=== PATIENT | female | born 1995 | race Caucasian/White ===

== ENCOUNTER 2025-01-16 16:55 | Inpatient (IN) | payer OTHER, SELFPAY ==
--- NOTE | ~2025-01-16 | US_ITS ---
CLINICAL HISTORY: further evaluation of large breast abscess Ultrasound right breast limited Comparison: None available Findings: At the area of concern in the lower-inner quadrant of the right breast there is a subcutaneous hypoechoic irregular nonvascular collection. Internal components are heterogeneous and hypoechoic without internal vascularity. Surrounding soft tissue is hypervascular. Collection measures 6.0 x 2.5 x 5.7 cm. IMPRESSION: Complex collection in the lower inner quadrant of the right breast measuring 6.0 x 2.5 x 5.7 cm with imaging characteristics suggestive of abscess. Recommend follow-up imaging after treatment at breast Imaging center to ensure resolution, as inflammatory breast cancer can have an appearance overlapping with breast abscess. This document has been electronically signed by: Evelio Olson MD on 01/16/2025 19:57:58
[2025-01-16 17:05] VITALS: BP 162/96; PULSE 110; RESP 18; TEMP 36.9; O2SAT 97; BMI 37.1
--- NOTE | 2025-01-16 17:05 | ED.GENADULT ---
HPI - General Adult General Chief complaint: Skin/Abscess/Foreign Body Stated complaint: pain, redness, swelling under right breast Time Seen by Provider: 01/16/25 20:48 Source: patient Limitations: no limitations History of Present Illness ED Provider: Chelo Jacobson PA-C HPI narrative: 29-year-old female with a history of morbid obesity, PCOS, diabetes who presents with right breast infection x1 week. Patient states she is prone to cystic acne. She developed a lesion beneath the right breast. It has increased in size, become large, red, warm and extremely painful. Subjective fevers at home, no active drainage from the site. The patient is not currently breast-feeding, she has not been breast-feeding recently. Patient states that she has not manage her diabetes with medication for 5 years. She states a one point she developed DKA, she was on insulin for 6 months. Following this time frame, she was told that managing her diabetes with diet and exercise would be sufficient. Related Data Allergies Allergy/AdvReac Type Severity Reaction Status Date / Time No Known Allergies Allergy Verified 01/16/25 17:06 Review of Systems Review of Systems: Yes all other systems are reviewed and are negative Constitutional: Constitutional: Denies fatigue and Reports fever(s) Cardiovascular: Cardiovascular: Reports chest pain and Denies dyspnea Respiratory: Respiratory: Denies dyspnea Gastrointestinal: Gastrointestinal: Denies abdominal pain, Denies nausea and Denies vomiting Integumentary/Breasts: Skin/Breast: Reports erythema, Reports skin swelling and Reports wounds Endocrine: Endocrine: Denies fatigue PMFSH Past Medical History Attestation statement: The following information was validated with the patient. Social History Social History Advance Directives: No Advance Directives Information Provided: Yes Do you have a plan to hurt others: No Plan Physical Exam ED Vital Signs: Vital Signs - 24 hr 01/16/25 17:05 01/16/25 20:54 01/16/25 21:29 Temperature 98.5 F 98.3 F 98.3 F Pulse Rate 110 H 101 H 101 H Respiratory Rate 18 20 20 Blood Pressure 162/96 H 146/59 H 146/59 H Pulse Oximetry 97 98 98 Oxygen Delivery Method Room Air Room Air Room Air BMI result Body Mass Index 37.1 Const Other: Alert Orientation/consciousness: patient oriented x3 Chest Other: The right breast is erythematous inferiorly and medially, large tender fluctuant swelling noted within this region, no active purulence from the site Resp Effort & Inspection: normal respiratory effort Cardio Other: Nonlabored respiration Skin Other: Warm dry no rash Neuro General: patient oriented x3, gait normal, no focal motor deficits and CN's II-XI intact bilaterally Psych Other: Cooperative Course Course Course Narrative: Rapid medical examination performed in triage by Kenya Frank PA-C. Patient is a 29 year old assigned female at presenting to the emergency department with a right breast abscess. Patient states that over the last week she has had a growing right breast abscess. Patient states that she is a diabetic. Detailed physical exam and review of systems are deferred to the link trainer operator. Labs and imaging ordered. Patient placed back in the waiting room pending room availability and results. Consultations Consultation #1: per Dr. Gan........he feels it appears to be superficial, that I could drain at bedside, just make a small incision Time: 21:18 Medications Administered Discontinued Medications Generic Name Dose Route Start Last Admin Trade Name Tia PRN Reason Stop Dose Admin Sodium Chloride 500 mls @ 500 mls/hr 01/16/25 21:22 01/16/25 21:59 Ns IV 01/16/25 22:21 500 mls/hr .Q1H ONE Administration Vancomycin HCl 1,500 mg/ 500 mls @ 333.333 mls/hr 01/16/25 21:22 01/16/25 22:20 Sodium Chloride IV 01/16/25 22:51 333.33 mls/hr ONCE ONE Administration Lidocaine/Epinephrine 10 ml 01/16/25 21:45 01/16/25 21:59 Lidocaine Hcl 1%/Epi 1:100,000 10 Ml Vial INFILTRATI 01/16/25 21:46 10 ml ONCE ONE Administration Morphine Sulfate 4 mg 01/16/25 21:22 01/16/25 21:58 Morphine Sulfate 4 Mg/Ml Cartridge IVPUSH 01/16/25 21:23 4 mg ONCE ONE Administration Protocol Procedures Abscess I/D Site: other (breast) Side (if applicable): right Sedation/analgesia: none Local Anesthetic: lidocaine 1% and with epi Amount of anesthesia used (mL): 5 Technique: incised with blade Amount of fluid expressed (mL): 50 Sent for culture/gram staining?: Yes Irrigation: No Packing used?: iodoform Medical Decision Making Medical Decision Making [facility] Narrative: [id number] female with a history of morbid obesity, PCOS, diabetes who presents with right breast infection x1 week. Patient states she is prone to cystic acne. She developed a lesion beneath the right breast. It has increased in size, become large, red, warm and extremely painful. Subjective fevers at home, no active drainage from the site. The patient is not currently breast-feeding, she has not been breast-feeding recently. Patient states that she has not manage her diabetes with medication for 5 years. She states a one point she developed DKA, she was on insulin for 6 months. Following this time frame, she was told that managing her diabetes with diet and exercise would be sufficient. Problem: PCOS, diabetes, obesity History: Per patient I have considered the following differential diagnoses: Cellulitis, purulent cellulitis, furuncle, carbuncle, abscess, mastitis, cancer Plan: The patient has a very large abscess of the right breast, ultrasound and labs already collected. Adding a blood cultures, lactic starting vanco, we will reach out to surgery for consult I have independently reviewed the following tests: Labs: Leukocytosis with left shift, not anemic, CRP 10.03, ESR 38 Ultrasound right breast:Findings: At the area of concern in the lower-inner quadrant of the right breast there is a subcutaneous hypoechoic irregular nonvascular collection. Internal components are heterogeneous and hypoechoic without internal vascularity. Surrounding soft tissue is hypervascular. Collection measures 6.0 x 2.5 x 5.7 cm. IMPRESSION: Complex collection in the lower inner quadrant of the right breast measuring 6.0 x 2.5 x 5.7 cm with imaging characteristics suggestive of abscess. Recommend follow-up imaging after treatment at breast Imaging center to ensure resolution, as inflammatory breast cancer can have an appearance overlapping with breast abscess. Differential Diagnosis Differential Diagnoses: The differential diagnosis associated with the presentation includes See medical decision making Admission/Observation Consideration of admission/observation: Escalation of care including admission/observation considered Surgical consult and medical admit Consult Healthcare Provider Management of the patient was discussed with: Hospitalist and Street Car Inspector Surgical consult Lab Data [facility] Lab Attestation statement: I reviewed the patient's lab results. 01/16/25 17:16 01/16/25 17:16 Labs: Lab Results 01/16/25 01/16/25 Range/Units 17:16 21:14 WBC 12.7 H (4.8-10.8) X10*3/uL RBC 4.89 (4.20-5.50) X10*6/uL Hgb 12.1 (12.0-16.0) g/dl Hct 36.7 L (37.0-47.0) % MCV 75.1 L (80.0-98.0) fL MCH 24.7 L (27.0-33.0) pg MCHC 33.0 (31.0-35.0) g/dl RDW 13.8 (11.0-16.0) % Plt Count 326 (160-400) X10*3/uL MPV 9.1 L (9.4-12.3) fL Immature Gran % (Auto) 0.7 H (0.0-0.4) % Neut % (Auto) 78.6 H (45-73) % Lymph % (Auto) 14.9 L (20-40) % [place] % (Auto) 5.3 (2-11) % Eos % (Auto) 0.3 (0-4) % Baso % (Auto) 0.2 (0-2) % Lymph # (Auto) 1.9 (1.2-4.9) X10*3/uL [place] # (Auto) 0.7 (0.1-1.2) X10*3/uL Eos # (Auto) 0.0 (0.0-0.4) X10*3/uL Baso # (Auto) 0.0 (0.0-0.2) X10*3/uL Abs Immat Gran (auto) 0.09 H (0.00-0.03) X10*3/uL Absolute Neuts (auto) 10.0 H (2.0-8.3) x10*3/uL Absolute Nucleated RBC 0.000 (0.0-0.012) X10*3/uL Nucleated RBC % (auto) 0.0 (0.0-0.2) /100WBC ESR 38 H (0-20) MM/HR Sodium 138 (135-145) mmol/L Potassium 3.8 (3.3-5.1) mmol/L Chloride 105 (96-108) mmol/L Carbon Dioxide 19 L (22-29) mmol/L Anion Gap 18 (12-20) BUN 8 L (9-16) mg/dL Creatinine 0.50 (0.5-1.4) mg/dL Estim Creat Clear Calc 173.7 Estimated GFR > 60 Random Glucose 322 H (60-115) mg/dL Lactic Acid 0.8 (0.5-2.0) mmol/L Calcium 9.8 (8.4-10.2) mg/dL Total Bilirubin 0.4 (0.0-1.0) mg/dL AST 17 (5-31) U/L ALT 13 (0-31) U/L Alkaline Phosphatase 92 (39-117) U/L C-Reactive Protein 10.03 H (< or = 0.50) mg/dL Total Protein 7.7 (6.5-8.0) g/dL Albumin 4.3 (3.5-5.0) g/dL Beta HCG, Quant < 2 mIU/mL Radiology Impression Discussion of test interpretation with radiology: I have reviewed the radiologist's reading. Discharge Plan Discharge Clinical Impression: Abscess of right breast Patient Disposition: Admitted As Inpatient Interventions: ED Discharge Assessment Last Done: 01/16/25 21:29 Admission Worksheet (ED) Last Done: 01/16/25 22:49 Print Language: Turkmen
[2025-01-16 17:26] LABS: MANUAL DIFF FLAG NO
[2025-01-16 17:28] LABS: Hematocrit 36.7 % (37.0-47.0); Hemoglobin 12.1 g/dl (12.0-16.0); Imm Gran Abs Auto 0.09 X10*3/uL (0.00-0.03); Imm Gran Pct Auto 0.7 % (0.0-0.4); Lymphocytes Absolute Auto 1.9 X10*3/uL (1.2-4.9); Mean Corpuscular HGB Conc 33.0 g/dl (31.0-35.0); Mean Corpuscular Hemoglobin 24.7 pg (27.0-33.0); Mean Corpuscular Volume 75.1 fL (80.0-98.0); NRBC Abs Auto 0.000 X10*3/uL (0.0-0.012); NRBC Pct Auto 0.0 /100WBC (0.0-0.2); Platelet Count 326 X10*3/uL (160-400); Red Blood Count 4.89 X10*6/uL (4.20-5.50); White Blood Count 12.7 X10*3/uL (4.8-10.8)
[2025-01-16 17:44] LABS: Alanine Aminotransferase 13 U/L (0-31); Albumin Level 4.3 g/dL (3.5-5.0); Alkaline Phosphatase 92 U/L (39-117); Anion Gap 18 (12-20); Aspartate Amino Transferase 17 U/L (5-31); Blood Urea Nitrogen 8 mg/dL (9-16); Calcium 9.8 mg/dL (8.4-10.2); Carbon Dioxide 19 mmol/L (22-29); Chloride 105 mmol/L (96-108); Creatinine Clr Calc Pharmacy 173.7; Estimated Glomerular Filt Rate > 60; Potassium 3.8 mmol/L (3.3-5.1); Sodium 138 mmol/L (135-145); Total Protein 7.7 g/dL (6.5-8.0)
[2025-01-16 20:54] VITALS: BP 146/59; PULSE 101; RESP 20; TEMP 36.8; O2SAT 98
[2025-01-16 21:29] VITALS: BP 146/59; PULSE 101; RESP 20; TEMP 36.8; O2SAT 98
[2025-01-16] MEDS: Lidocaine HCl 1%/Epi 1:100,000 10 ML VIAL INFILTRATI (21:59)
--- NOTE | 2025-01-16 23:04 | P.HPHOSP_ITS ---
History of Present Illness Date of Service: 01/16/25 Chief Complaint: breast lesion 29-year-old female with a past medical history of diabetes, elevated BMI; presented to the hospital today with a chief complaint of right breast infection. Patient mentioned that about a week ago she developed a lesion underneath her right breast followed by he developed into a wound with surrounding erythema. Has subjective fevers. Subsequently came to ER for further evaluation. Patient denies any chest pain or palpitations. Denies nausea or vomiting. Denies any GI or symptoms. Mentioned she has history of diabetes and he has been noncompliant with her medications due to insurance concerns. Review of all other systems is negative except mentioned above ER course: Per ER team, patient noted to have lesion under the right breast which is warm tender and erythematous; status post I and D at bedside. Cultures were sent from the fluid. Patient was started on broad-spectrum antibiotics. ER team also discussed with Dr. Gan from General surgery. Admission to the medicine service for IV antibiotic and will evaluate the patient in the morning. Better ultrasound showed 6 X5.7 cm abscess in the right breast. PMFSH Social History Household Members: Spouse and Children Housing: House Do you presently have visiting nurse or other home services: No Patient Tobacco Use Status: Never used Tobacco Smoked in Last 30 Days: No e-Cigarette/Vaping Use: Former Use Patient Interested in Nicotine Replacement: No Second Hand Smoke Exposure: No Have you been hit, kicked, punched, or otherwise hurt by someone within the past year? If so, by whom?: No Do you feel safe in your current relationship?: Yes Is there a partner from a previous relationship who is making you feel unsafe now?: No Are you made to feel afraid or neglected: No Advance Directives: No Advance Directives Information Provided: Yes Advance Directives on File: No Do you have a plan to hurt others: No Plan Recently lost weight without trying: No Eating poorly because of decreased appetite: No Nutrition Risks: No Nutritional Risk Patient : No : No Poor oral hygiene: No Meds Allergies Allergy/AdvReac Type Severity Reaction Status Date / Time No Known Allergies Allergy Verified 01/16/25 17:06 Physical Exam 2 Vital Signs and Narrative: Vital Signs: Last Vital Signs Temp 98.3 F 01/16/25 21:29 Pulse 101 H 01/16/25 21:29 Resp 20 01/16/25 21:29 BP 146/59 H 01/16/25 21:29 Pulse Ox 98 01/16/25 21:29 O2 Del Method Room Air 01/16/25 21:29 BMI result Body Mass Index 37.1 Gen: Appears be in no acute distress HEENT: NCAT, Moist mucosa. Pulmonary: Vesicular breath sounds, fair air entry CVS: Normal S1-S2 Abdomen: BS+, Soft, Nontender Extremities: Warm well perfused Neuro: Alert and awake. Skin: Results Labs 01/17/25 03:37 01/17/25 03:37 Labs: Laboratory Results - last 24 hr 01/16/25 01/16/25 17:16 21:14 MCV 75.1 L MCH 24.7 L MCHC 33.0 RDW 13.8 Plt Count 326 MPV 9.1 L Immature Gran % (Auto) 0.7 H Neut % (Auto) 78.6 H Lymph % (Auto) 14.9 L [place] % (Auto) 5.3 Eos % (Auto) 0.3 Baso % (Auto) 0.2 Lymph # (Auto) 1.9 [place] # (Auto) 0.7 Eos # (Auto) 0.0 Baso # (Auto) 0.0 Abs Immat Gran (auto) 0.09 H Absolute Neuts (auto) 10.0 H Absolute Nucleated RBC 0.000 Nucleated RBC % (auto) 0.0 ESR 38 H Anion Gap 18 Estim Creat Clear Calc 173.7 Estimated GFR > 60 Random Glucose 322 H Lactic Acid 0.8 Calcium 9.8 Total Bilirubin 0.4 AST 17 ALT 13 Alkaline Phosphatase 92 C-Reactive Protein 10.03 H Total Protein 7.7 Albumin 4.3 Beta HCG, Quant < 2 Assessment and Plan (1) Abscess of right breast: Status: Acute Plan 29-year-old female with a past medical history of diabetes, elevated BMI; presented to the hospital today with a chief complaint of right breast infection. Right breast cellulitis/abscess: Continue vancomycin, Zosyn General surgery consult Follow-up cultures Pain control Radiology recommended follow-up imaging after treatment at breast Imaging center to ensure resolution, as inflammatory breast cancer can have an appearance overlapping with breast abscess. Diabetes: Patient noncompliant with medications. Currently mildly hyperglycemic. Not in DKA or HHS. Will give the patient Lantus plus sliding scale. Follow up hemoglobin A1c. DVT prophylaxis: Lovenox Code status: Full code Quality Stroke Does the patient have a stroke diagnosis?: No VTE Prior VTE?: No VTE Risk Level:: Medical - moderate - high VTE Device Contraindication: Treatment Not Indicated VTE Drug Contraindication: N/A - Med Ordered
[2025-01-16 23:08] VITALS: BP 142/67; PULSE 104; RESP 20; TEMP 36.9; O2SAT 96
[2025-01-17] MEDS: Lactated Ringers 1,000 ML 100 ML IVCONT ×3 (00:02→21:19)
[2025-01-17] MEDS: 0.9 % Sodium Chloride Flush 3 ML SYRINGE IVFLUSH ×2 (00:02→19:59)
[2025-01-17 04:11] VITALS: BP 132/69; PULSE 94; RESP 20; TEMP 37; O2SAT 96
[2025-01-17 04:46] LABS: MANUAL DIFF FLAG NO
[2025-01-17 04:55] LABS: Hematocrit 32.5 % (37.0-47.0); Hemoglobin 10.6 g/dl (12.0-16.0); Imm Gran Abs Auto 0.06 X10*3/uL (0.00-0.03); Imm Gran Pct Auto 0.5 % (0.0-0.4); Lymphocytes Absolute Auto 3.1 X10*3/uL (1.2-4.9); Mean Corpuscular HGB Conc 32.6 g/dl (31.0-35.0); Mean Corpuscular Hemoglobin 25.0 pg (27.0-33.0); Mean Corpuscular Volume 76.7 fL (80.0-98.0); NRBC Abs Auto 0.000 X10*3/uL (0.0-0.012); NRBC Pct Auto 0.0 /100WBC (0.0-0.2); Platelet Count 299 X10*3/uL (160-400); Red Blood Count 4.24 X10*6/uL (4.20-5.50); White Blood Count 11.6 X10*3/uL (4.8-10.8)
[2025-01-17 05:06] LABS: Anion Gap 15 (12-20); Blood Urea Nitrogen 11 mg/dL (9-16); Calcium 8.7 mg/dL (8.4-10.2); Carbon Dioxide 20 mmol/L (22-29); Chloride 107 mmol/L (96-108); Creatinine Clr Calc Pharmacy 181.0; Estimated Glomerular Filt Rate > 60; Potassium 3.9 mmol/L (3.3-5.1); Sodium 138 mmol/L (135-145)
[2025-01-17 05:51] VITALS: BMI 36.3
[2025-01-17 06:06] VITALS: BP 166/86; PULSE 100; RESP 20; TEMP 36.8; O2SAT 98
--- NOTE | 2025-01-17 06:49 | PHA.PROG ---
Admission Date/Time: January 16, 2025 23:01 Indication:SSSI Weight in k.1 kg Serum Creatinine - Last 168 Hours 01/16/25 01/17/25 17:16 03:37 Creatinine 0.50 0.48 L Estimated CrCl and GFR - Last 168 Hours 01/16/25 01/17/25 17:16 03:37 Estim Creat Clear Calc 173.7 181.0 Estimated GFR > 60 > 60 Vancomycin Loading Dose: 1,500mg Current Vancomycin Dosing Regimen: 1,250 mg q12h Vancomycin Monitoring using AUC goal of 400 - 600 range with trough as surrogate marker: 461, 13.7 Date and Time for next Vancomycin Level to be drawn: 01/18 @ 1000 Pharmacist Comments on Vancomycin Plan: Vancomycin dosing will take advantage of [employer] as a clinical decision support tool that uses Bayesian modeling to calculate individual patient's pharmacokinetic parameters and forecast the patient's drug concentration time course with the target goal AUC 24 range of 400 - 600 mg/L/hr.
[2025-01-17 07:52] LABS: Glucose, Whole Blood 253 mg/dL (60-115)
[2025-01-17 08:00] VITALS: BP 136/66; PULSE 98; RESP 18; TEMP 37.7; O2SAT 98
--- NOTE | 2025-01-17 08:02 | PHA.MEDREC ---
Addendum entered by Jaclyn Payton RPh 01/17/25 08:22: MED REC REVIEWED BY [facility] Original Note: Pharmacy Consult ? Medication Reconciliation Pharmacy has completed the medication reconciliation. Spoke with pt and she confirmed her medications.
--- NOTE | 2025-01-17 08:38 | P.CONGS_ITS ---
History of Present Illness Consult details Consult date: 01/17/25 <Paresh Huber PA-C - Last Filed: 01/17/25 08:57> Reason for consult: other (breast abscess) <Paresh Huber PA-C - Last Filed: 01/17/25 08:57> Narrative: 29 year old female with obesity, PCOS, diabetes seen in consult for a right breast abscess s/p I&D in the ED. She states this began last week as an area of redness and discomfort that she initially thought was a heat rash or a boil as she has had that in the past. However it continued to get more painful, red and swollen until about 2 days ago when the pain became unbearable. She denies fevers or chills, denies spontaneous drainage from the area She went to urgent care and was informed to come to the ED becasue she had an abscess. Labs in the ED showing leukocytosis 12.7. An I&d was performed in the ED, cultures were obtained. the wound was packed with 1/4 packing and dressed. Patient was started on empiric vanco and zosyn. This morning she does feel soem relief. Feels less pressure and pain wheen at rest, it is still painful with manipulation of the breast. Currently denying fever or chills. She is hungry and wants to eat <Paresh Huber PA-C - Last Filed: 01/17/25 08:57> PMF Social History Social History: Social History Household Members: Spouse and Children Housing: House Do you presently have visiting nurse or other home services: No Patient Tobacco Use Status: Never used Tobacco Smoked in Last 30 Days: No e-Cigarette/Vaping Use: Former Use Patient Interested in Nicotine Replacement: No Second Hand Smoke Exposure: No Have you been hit, kicked, punched, or otherwise hurt by someone within the past year? If so, by whom?: No Do you feel safe in your current relationship?: Yes Is there a partner from a previous relationship who is making you feel unsafe now?: No Are you made to feel afraid or neglected: No Advance Directives: No Advance Directives Information Provided: Yes Advance Directives on File: No Do you have a plan to hurt others: No Plan Recently lost weight without trying: No Eating poorly because of decreased appetite: No Nutrition Risks: No Nutritional Risk Patient : No : No Poor oral hygiene: No <Paresh Huber PA-C - Last Filed: 01/17/25 08:57> Meds Allergies/Adverse reactions: Allergies Allergy/AdvReac Type Severity Reaction Status Date / Time No Known Allergies Allergy Verified 01/16/25 17:06 <Paresh Huber PA-C - Last Filed: 01/17/25 08:57> Active Medications: Current Medications Acetaminophen (Acetaminophen 325 Mg Tablet) 650 mg PO Q6H PRN PRN Reason: Pain, Mild 1-3,fever,headache Calcium Carbonate (Calcium Carbonate 750 Mg Tab.Chew) 750 mg PO Q4H PRN PRN Reason: Heartburn Dextrose (Dextrose 50 % 25 Gm/50 Ml Syringe) 25 gm IVPUSH Q15M PRN; Protocol PRN Reason: per Hypoglycemia Standing Ord. Enoxaparin Sodium (Enoxaparin Sodium 40 Mg/0.4 Ml Syringe) 40 mg SUBCUT Q24H [facility] Last Admin: 01/17/25 00:09 Dose: 40 mg Glucose (Glucose Gel 15 Gm Gel..Gram.) 15 gm PO Q15M PRN; Protocol PRN Reason: per Hypoglycemia Standing Ord. Lactated Ringer's (Lr) 1,000 mls @ 100 mls/hr IVCONT .Q10H [facility] Last Admin: 01/17/25 00:02 Dose: 100 mls/hr Piperacillin Sod/Tazobactam (Sod 3.375 gm/ Sodium Chloride) 50 mls @ 100 mls/hr IV Q6H [facility] Last Infusion: 01/17/25 04:40 Dose: Infused Vancomycin HCl 1,250 mg/ (Sodium Chloride) 250 mls @ 166.667 mls/hr IV Q12H [facility] Insulin Glargine (Insulin Glargine,Hum.Rec.Anlog 100 Unit/Ml 10 Ml Vial) 10 unit SUBCUT BEDTIME [facility] Insulin Human Lispro (Insulin Lispro 100 Unit/Ml 3 Ml Vial) 0 unit SUBCUT QIDACHS [facility]; Protocol Last Admin: 01/17/25 07:58 Dose: 6 unit Magnesium Hydroxide (Milk Of Magnesia 30 Ml Oral.Susp) 30 ml PO DAILY PRN PRN Reason: Constipation Melatonin (Melatonin 3 Mg Tablet) 6 mg PO BEDTIME PRN PRN Reason: Insomnia Oxycodone HCl (Oxycodone Hcl Immed Release 5 Mg Tablet) 5 mg PO Q6H PRN PRN Reason: Pain, Moderate(Pain Scale 4-6) Pharmacy Consult (Consult Rx Vancomycin Dosing) 1 each MISCELLANE DAILY PRN PRN Reason: Consult order Sodium Chloride (0.9 % Sodium Chloride Flush 3 Ml Syringe) 3 ml IVFLUSH QSHIFT [facility] Last Admin: 01/17/25 07:56 Dose: Not Given <KOMAL Benson Last Filed: 01/17/25 08:57> Home medications: Home Medications ?Medication ?Instructions ?Recorded ?Confirmed ?Last Taken ?Type [id number] carb-vit K 1 tab PO DAILY 02/0201/17/25 01/16/25 History 18 mg iron-400 mcg-500 mg tablet naproxen sodium 220 mg tablet 440 - 660 mg PO BID PRN Pain 01/17/25 01/17/25 Unknown History (Aleve) <KOMAL Benson Last Filed: 01/17/25 08:57> Physical Exam 2 Vital Signs: Vital Signs: Last Vital Signs Temp 99.8 F 01/17/25 08:00 Pulse 98 01/17/25 08:00 Resp 18 01/17/25 08:00 BP 136/66 01/17/25 08:00 Pulse Ox 98 01/17/25 08:00 O2 Del Method Room Air 01/17/25 08:00 BMI result Body Mass Index 36.3 <KOMAL Benson Last Filed: 01/17/25 08:57> Const: General: comfortable and no acute distress <KOMAL Benson Last Filed: 01/17/25 08:57> Orientation/consciousness: patient oriented x3 <KOMAL Benson Last Filed: 01/17/25 08:57> Chest: Other: right breast: 1 cm incision, moderate serosanguenious drainage. moderate induration and erythema surrounding. there is about a 3 cm pocket. No further purulence. Tender. 3 cm deep <KOMAL Benson Last Filed: 01/17/25 08:57> Neuro: General: patient oriented x3 <KOMAL Benson Last Filed: 01/17/25 08:57> Results Labs Result diagrams: 01/17/25 03:37 01/17/25 03:37 <Paresh Huber PA-C - Last Filed: 01/17/25 08:57> Labs: Abnormal lab results 01/16/25 01/17/25 01/17/25 Range/Units 17:16 03:37 07:49 WBC 12.7 H 11.6 H (4.8-10.8) X10*3/uL Hgb 10.6 L (12.0-16.0) g/dl Hct 36.7 L 32.5 L (37.0-47.0) % MCV 75.1 L 76.7 L (80.0-98.0) fL MCH 24.7 L 25.0 L (27.0-33.0) pg MPV 9.1 L (9.4-12.3) fL Immature Gran % (Auto) 0.7 H 0.5 H (0.0-0.4) % Neut % (Auto) 78.6 H (45-73) % Lymph % (Auto) 14.9 L (20-40) % Abs Immat Gran (auto) 0.09 H 0.06 H (0.00-0.03) X10*3/uL Absolute Neuts (auto) 10.0 H (2.0-8.3) x10*3/uL ESR 38 H (0-20) MM/HR Carbon Dioxide 19 L 20 L (22-29) mmol/L BUN 8 L (9-16) mg/dL Creatinine 0.48 L (0.5-1.4) mg/dL POC Glucose 253 H (60-115) mg/dL Random Glucose 322 H 291 H (60-115) mg/dL C-Reactive Protein 10.03 H (< or = 0.50) mg/dL Short CBC 01/16/25 01/17/25 Range/Units 17:16 03:37 WBC 12.7 H 11.6 H (4.8-10.8) X10*3/uL Hgb 12.1 10.6 L (12.0-16.0) g/dl Hct 36.7 L 32.5 L (37.0-47.0) % Plt Count 326 299 (160-400) X10*3/uL BMP 01/16/25 01/17/25 17:16 03:37 Sodium 138 138 Potassium 3.8 3.9 Chloride 105 107 Carbon Dioxide 19 L 20 L BUN 8 L 11 Creatinine 0.50 0.48 L Calcium 9.8 8.7 D Liver Function 01/16/25 Range/Units 17:16 Total Bilirubin 0.4 (0.0-1.0) mg/dL AST 17 (5-31) U/L ALT 13 (0-31) U/L Alkaline Phosphatase 92 (39-117) U/L Albumin 4.3 (3.5-5.0) g/dL All other labs normal. <Paresh Huber PA-C - Last Filed: 01/17/25 08:57> Assessment and Plan (1) Abscess of right breast: Status: Acute <Paresh Huber PA-C - Last Filed: 01/17/25 08:57> I&D of a large right breast abscess done by the ED staff last night Abscess seemed to be adequately drained Right breast with a little bit of residual cellulitic changes but no fluctuance Dressings changed Packing changed Plan to check the wound tomorrow Continue antibiotics for now and follow up on cultures Seen and examined independently <Leon Gan MD - Last Filed: 01/17/25 09:24> 29 year old female with obesity, PCOS, diabetes seen in consult for a right breast abscess s/p I&D in the ED. Overall she is improving now that this is draining. Feels less pain and pressure. Denying fever or chills. On exam there is moderate induration and erythema surrounding the incision site. the dressings were saturated with serosanguenious fluid. Packing was removed and some excess blood drainage was expressed. I probed with a q tip to break up any loculations and further expressed more fluid. I did not appreciate any further purulence. I repacked the wound with 1/4 in packing and dressed the wound with gauze. No further indication for surgical intervention. can continue with daily dressing changes. She is okay to have diet as tolerated continue IV abx, cultures pending, consider narrowing when resulted daily dressing changes pain control glucose control patient should follow up with PCP regarding medications for diabetes <Paresh Huber PA-C - Last Filed: 01/17/25 08:57> Procedures Date of Service Date of Service: 01/17/25 <Paresh Huber PA-C - Last Filed: 01/17/25 08:57> 01/17/25 <Leon Gan MD - Last Filed: 01/17/25 09:24>
[2025-01-17 11:26] LABS: Glucose, Whole Blood 251 mg/dL (60-115)
--- NOTE | 2025-01-17 13:10 | MHC.CM.PN ---
pt lives with is independent has no setvices has own ride home dc plan home no services
--- NOTE | 2025-01-17 13:25 | HO.PM.IMPN ---
Subjective Subjective Date of Service: 01/17/25 Interval History: Pain better, intermittent No fevers No acute events overnight Seen by general surgery and dressing and packing changed Review of Systems Review of Systems: Yes all other systems are reviewed and are negative Physical Exam Exam: Exam: General: AOx3, no acute distress Resp: CTA bilaterally CVS: S1, S2, RRR GI: +BS, NT, no distention Skin: Warm, dry. Right breast with clean and dry dressing in place Neuro: Cranial nerves II-XII grossly intact bilaterally. Motor grossly intact bilaterally Extremities: No edema Psych: Appropriate affect Vital Signs: Vital Signs: Last Vital Signs Temp 99.8 F 01/17/25 08:00 Pulse 98 01/17/25 08:00 Resp 18 01/17/25 08:00 BP 136/66 01/17/25 08:00 Pulse Ox 98 01/17/25 08:00 O2 Del Method Room Air 01/17/25 08:00 BMI result Body Mass Index 36.3 Objective Data Active Medications Acetaminophen (Acetaminophen 325 Mg Tablet) 650 mg PO Q6H PRN PRN Reason: Pain, Mild 1-3,fever,headache Calcium Carbonate (Calcium Carbonate 750 Mg Tab.Chew) 750 mg PO Q4H PRN PRN Reason: Heartburn Dextrose (Dextrose 50 % 25 Gm/50 Ml Syringe) 25 gm IVPUSH Q15M PRN; Protocol PRN Reason: per Hypoglycemia Standing Ord. Enoxaparin Sodium (Enoxaparin Sodium 40 Mg/0.4 Ml Syringe) 40 mg SUBCUT Q24H [facility] Last Admin: 01/17/25 00:09 Dose: 40 mg Documented By: MARIANAOPEMeghan Glucose (Glucose Gel 15 Gm Gel..Gram.) 15 gm PO Q15M PRN; Protocol PRN Reason: per Hypoglycemia Standing Ord. Lactated Ringer's (Lr) 1,000 mls @ 100 mls/hr IVCONT .Q10H [facility] Last Admin: 01/17/25 12:14 Dose: 100 mls/hr Documented By: SACHIN Piperacillin Sod/Tazobactam (Sod 3.375 gm/ Sodium Chloride) 50 mls @ 100 mls/hr IV Q6H [facility] Last Infusion: 01/17/25 12:15 Dose: Infused Documented By: SACHIN Vancomycin HCl 1,250 mg/ (Sodium Chloride) 250 mls @ 166.667 mls/hr IV Q12H [facility] Last Infusion: 01/17/25 11:45 Dose: Infused Documented By: SACHIN Insulin Glargine (Insulin Glargine,Hum.Rec.Anlog 100 Unit/Ml 10 Ml Vial) 10 unit SUBCUT BEDTIME CONSTANTINE Insulin Human Lispro (Insulin Lispro 100 Unit/Ml 3 Ml Vial) 0 unit SUBCUT QIDACHS [facility]; Protocol Last Admin: 01/17/25 11:38 Dose: 6 unit Documented By: SACHIN Magnesium Hydroxide (Milk Of Magnesia 30 Ml Oral.Susp) 30 ml PO DAILY PRN PRN Reason: Constipation Melatonin (Melatonin 3 Mg Tablet) 6 mg PO BEDTIME PRN PRN Reason: Insomnia Oxycodone HCl (Oxycodone Hcl Immed Release 5 Mg Tablet) 5 mg PO Q6H PRN PRN Reason: Pain, Moderate(Pain Scale 4-6) Pharmacy Consult (Consult Rx Vancomycin Dosing) 1 each MISCELLANE DAILY PRN PRN Reason: Consult order Sodium Chloride (0.9 % Sodium Chloride Flush 3 Ml Syringe) [address] [facility] Last Admin: 01/17/25 07:56 Dose: Not Given Documented By: ASCHIN Non-Admin Reason: IV Running Labs 01/17/25 03:37 01/17/25 03:37 Labs: Laboratory Results - last 24 hr 01/16/25 01/16/25 01/17/25 17:16 21:14 03:37 MCV 75.1 L 76.7 L MCH 24.7 L 25.0 L MCHC 33.0 32.6 RDW 13.8 13.8 Plt Count 326 299 MPV 9.1 L 9.4 Immature Gran % (Auto) 0.7 H 0.5 H Neut % (Auto) 78.6 H 64.6 Lymph % (Auto) 14.9 L 26.2 [place] % (Auto) 5.3 7.3 Eos % (Auto) 0.3 1.1 Baso % (Auto) 0.2 0.3 Lymph # (Auto) 1.9 3.1 [place] # (Auto) 0.7 0.9 Eos # (Auto) 0.0 0.1 Baso # (Auto) 0.0 0.0 Abs Immat Gran (auto) 0.09 H 0.06 H Absolute Neuts (auto) 10.0 H 7.5 Absolute Nucleated RBC 0.000 0.000 Nucleated RBC % (auto) 0.0 0.0 ESR 38 H Anion Gap 18 15 Estim Creat Clear Calc 173.7 181.0 Estimated GFR > 60 > 60 POC Glucose Random Glucose 322 H 291 H Lactic Acid 0.8 Calcium 9.8 8.7 D Total Bilirubin 0.4 AST 17 ALT 13 Alkaline Phosphatase 92 C-Reactive Protein 10.03 H Total Protein 7.7 Albumin 4.3 Beta HCG, Quant < 2 01/17/25 01/17/25 07:49 11:20 MCV MCH MCHC RDW Plt Count MPV Immature Gran % (Auto) Neut % (Auto) Lymph % (Auto) [place] % (Auto) Eos % (Auto) Baso % (Auto) Lymph # (Auto) [place] # (Auto) Eos # (Auto) Baso # (Auto) Abs Immat Gran (auto) Absolute Neuts (auto) Absolute Nucleated RBC Nucleated RBC % (auto) ESR Anion Gap Estim Creat Clear Calc Estimated GFR POC Glucose 253 H 251 H Random Glucose Lactic Acid Calcium Total Bilirubin AST ALT Alkaline Phosphatase C-Reactive Protein Total Protein Albumin Beta HCG, Quant Microbiology Microbiology Results: Microbiology 01/16/25 23:07 Gram Stain - Final Breast Right Assessment and Plan (1) Abscess of right breast: Status: Acute Plan 29-year-old female with a past medical history of diabetes, elevated BMI; presented to the hospital today with a chief complaint of right breast infection. Right breast cellulitis/abscess with sepsis: Initially met sepsis with tachycardia and leukocytosis; lactic acid WNL Continue vancomycin, Zosyn, day 2 General surgery following, replaced dressing and packing today; no plans for OR at this time Follow-up cultures Pain control Radiology recommended follow-up imaging after treatment at breast Imaging center to ensure resolution, as inflammatory breast cancer can have an appearance overlapping with breast abscess. Diabetes: Patient noncompliant with medications. Currently mildly hyperglycemic. Not in DKA or HHS. Will give the patient Lantus plus sliding scale. Follow up hemoglobin A1c. DVT prophylaxis: Lovenox Code status: Full code Quality Stroke Does the patient have a stroke diagnosis?: No VTE Prior VTE?: No VTE Risk Level:: Medical - moderate - high VTE Device Contraindication: Treatment Not Indicated VTE Drug Contraindication: N/A - Med Ordered
[2025-01-17 13:46] LABS: Hemoglobin A1C 288.9763 umol/L; Total Hemoglobin (HGBA1C) 2845.5999 umol/L
[2025-01-17 15:20] VITALS: BP 143/83; PULSE 90; RESP 16; TEMP 36.7; O2SAT 96
[2025-01-17 16:20] LABS: Glucose, Whole Blood 232 mg/dL (60-115)
[2025-01-17 19:43] LABS: Glucose, Whole Blood 270 mg/dL (60-115)
[2025-01-17 19:53] VITALS: BP 142/86; PULSE 90; RESP 20; TEMP 36.8; O2SAT 94
[2025-01-17] MEDS: Insulin Glargine,Hum.rec.anlog 100 UNIT/ML 10 ML VIAL 10 UNIT SUBCUT (19:55)
[2025-01-18] MEDS: oxyCODONE HCl Immed Release 5 MG TABLET PO (03:29)
[2025-01-18 03:32] VITALS: BP 135/77; PULSE 74; RESP 16; TEMP 36.6; O2SAT 98
[2025-01-18 07:34] LABS: Glucose, Whole Blood 261 mg/dL (60-115)
[2025-01-18 07:44] VITALS: BP 145/88; PULSE 90; RESP 16; TEMP 36.6; O2SAT 95
--- NOTE | 2025-01-18 08:01 | P.PNGS_ITS ---
Subjective Subjective Date of Service: 01/18/25 Interval history: Feels much better Denies significant pain on the I&D site No fever Physical Exam 2 Vital Signs: Vital Signs: Last Vital Signs Temp 97.9 F 01/18/25 07:44 Pulse 90 01/18/25 07:44 Resp 16 01/18/25 07:44 BP 145/88 H 01/18/25 07:44 Pulse Ox 95 01/18/25 07:44 O2 Del Method Room Air 01/18/25 07:44 BMI result Body Mass Index 36.3 Const: General: comfortable and no acute distress Chest: Other: Right breast with much less induration, residual fluctuance, cellulitic changes much improved Resp: Effort & Inspection: normal respiratory effort Cardio: Rate: regular rate Objective Data Active Medications Acetaminophen (Acetaminophen 325 Mg Tablet) 650 mg PO Q6H PRN PRN Reason: Pain, Mild 1-3,fever,headache Last Admin: 01/17/25 21:16 Dose: 650 mg Documented By: SHAY Calcium Carbonate (Calcium Carbonate 750 Mg Tab.Chew) 750 mg PO Q4H PRN PRN Reason: Heartburn Dextrose (Dextrose 50 % 25 Gm/50 Ml Syringe) 25 gm IVPUSH Q15M PRN; Protocol PRN Reason: per Hypoglycemia Standing Ord. Enoxaparin Sodium (Enoxaparin Sodium 40 Mg/0.4 Ml Syringe) 40 mg SUBCUT Q24H [facility] Last Admin: 01/17/25 22:56 Dose: 40 mg Documented By: SHAY Glucose (Glucose Gel 15 Gm Gel..Gram.) 15 gm PO Q15M PRN; Protocol PRN Reason: per Hypoglycemia Standing Ord. Lactated Ringer's (Lr) 1,000 mls @ 100 mls/hr IVCONT .Q10H [facility] Last Admin: 01/17/25 21:19 Dose: 100 mls/hr Documented By: SHAY Piperacillin Sod/Tazobactam (Sod 3.375 gm/ Sodium Chloride) 50 mls @ 100 mls/hr IV Q6H [facility] Last Infusion: 01/18/25 06:04 Dose: Infused Documented By: RG Vancomycin HCl 1,250 mg/ (Sodium Chloride) 250 mls @ 166.667 mls/hr IV Q12H [facility] Last Infusion: 01/17/25 22:58 Dose: Infused Documented By: SHAY Insulin Glargine (Insulin Glargine,Hum.Rec.Anlog 100 Unit/Ml 10 Ml Vial) 10 unit SUBCUT BEDTIME [facility] Last Admin: 01/17/25 19:55 Dose: 10 unit Documented By: SHAY Insulin Human Lispro (Insulin Lispro 100 Unit/Ml 3 Ml Vial) 0 unit SUBCUT QIDACHS [facility]; Protocol Last Admin: 01/17/25 19:55 Dose: 6 unit Documented By: SHAY Magnesium Hydroxide (Milk Of Magnesia 30 Ml Oral.Susp) 30 ml PO DAILY PRN PRN Reason: Constipation Melatonin (Melatonin 3 Mg Tablet) 6 mg PO BEDTIME PRN PRN Reason: Insomnia Oxycodone HCl (Oxycodone Hcl Immed Release 5 Mg Tablet) 5 mg PO Q6H PRN PRN Reason: Pain, Moderate(Pain Scale 4-6) Last Admin: 01/18/25 03:29 Dose: 5 mg Documented By: RG Pharmacy Consult (Consult Rx Vancomycin Dosing) 1 each MISCELLANE DAILY PRN PRN Reason: Consult order Sodium Chloride (0.9 % Sodium Chloride Flush 3 Ml Syringe) 3 ml IVFLUSH QSHIFT [facility] Last Admin: 01/18/25 06:47 Dose: Not Given Documented By: SACHIN Non-Admin Reason: IV Running Labs 01/17/25 03:37 01/17/25 03:37 Labs: Laboratory Results - last 24 hr 01/17/25 01/17/25 01/17/25 03:37 11:20 16:16 POC Glucose 251 H 232 H Estimat Average Glucose 280 Hemoglobin A1c % 11.4 H 01/17/25 01/18/25 19:39 07:19 POC Glucose 270 H 261 H Estimat Average Glucose Hemoglobin A1c % Microbiology Microbiology Results: Microbiology 01/16/25 21:14 Blood Culture - Preliminary Blood - Venous No growth after 24 hours. 01/16/25 21:14 Blood Culture - Preliminary Blood - Venous No growth after 24 hours. 01/16/25 23:07 Gram Stain - Final Breast Right Procedures Date of Service Date of Service: 01/18/25 Progress Note: A&P Assessment and plan (1) Abscess of right breast: Status: Acute Assessment and Plan: I&D done in the ER I have pulled out the packing and changed his dressings Site looks much improved No further surgical intervention necessary at this time Okay to DC home on oral antibiotics if medically appropriate Daily wound care with dry dressings Advised on importance of good blood sugar control Time Spent With Patient Time: Total time managing care of this patient today ____ minutes. Quality Stroke Does the patient have a stroke diagnosis?: No VTE Prior VTE?: No VTE Risk Level:: Medical - moderate - high VTE Device Contraindication: Treatment Not Indicated VTE Drug Contraindication: N/A - Med Ordered
[2025-01-18 08:50] LABS: Creatinine Clr Calc Pharmacy 186.6; Estimated Glomerular Filt Rate > 60
[2025-01-18] MEDS: Lactated Ringers 1,000 ML 100 ML IVCONT (09:23)
--- NOTE | 2025-01-18 09:27 | HE.PHANOTE ---
Vancomycin Vancomycin level 3.7, increasing to 1500 mg q8h. RN gave dose before level was back. next level 01/19/25 @0600
[2025-01-18 11:25] LABS: Glucose, Whole Blood 259 mg/dL (60-115)
--- NOTE | 2025-01-18 12:07 | PM.DS ---
DS: Providers Provider Date of Service: 01/18/25 Date of admission: 01/16/25 23:01 Date of discharge: 01/18/25 Primary care physician: Janki Bond MD Consults: 01/16/25 23:03 Consult to General Surgery Routine Consulting Provider: [facility] Reason for consultation: breast abscess DS: Diagnosis Discharge Diagnosis (1) Abscess of right breast: Status: Acute DS: Summary Hospital Course Hospital Course: From admission HPI: Date of Service: 01/16/25 Chief Complaint: breast lesion 29-year-old female with a past medical history of diabetes, elevated BMI; presented to the hospital today with a chief complaint of right breast infection. Patient mentioned that about a week ago she developed a lesion underneath her right breast followed by he developed into a wound with surrounding erythema. Has subjective fevers. Subsequently came to ER for further evaluation. Patient denies any chest pain or palpitations. Denies nausea or vomiting. Denies any GI or symptoms. Mentioned she has history of diabetes and he has been noncompliant with her medications due to insurance concerns. Review of all other systems is negative except mentioned above ER course: Per ER team, patient noted to have lesion under the right breast which is warm tender and erythematous; status post I and D at bedside. Cultures were sent from the fluid. Patient was started on broad-spectrum antibiotics. ER team also discussed with Dr. Gan from General surgery. Admission to the medicine service for IV antibiotic and will evaluate the patient in the morning. Better ultrasound showed 6 X5.7 cm abscess in the right breast. Hospital course: Pt was admitted to the hospital for right breast abscess meeting sepsis criteria. pt underwent I and D in the emergency room and was started broad-spectrum antibiotics. Hospital course was uncomplicated, and patient's symptoms improved with treatment. Was seen and evaluated by General surgery who did not feel that any emergent surgical intervention required. Dressings were changed daily and pt no longer requires packing in abscess. WBC trended down and vitals were stable. Wound culture without organism requiring sensitivities. Pt will be discharged home on Augmentin 875 mg b.i.d. x5 days. Radiology recommended follow up imaging in 1-2 months after treatment at a breast Imaging Center to ensure resolution, as inflammatory breast cancer can have an appearance overlapping with breast abscess. Pt should follow up in 1 week with PCP to monitor progress and for routine post hospitalization visit. Pt was also noted to be hyperglycemic and with an A1c of 11.4. Pt previously on insulin that was stopped 5 years ago after diet and exercise changes. Has not been following her sugars closely since then. The pt will be discharged on short-acting sliding scale insulin as well as Lantus 15 units at bedtime. Should follow up PCP for diabetes management, including possibly starting on oral diabetic medications. Time Attestation Discharge Coordination Time (in mins): 35 Quality: Safe Use of Opioids Does Pt have an Active Cancer Diagnosis on the Problem List?: No Quality: Stroke Does the patient have a stroke diagnosis?: No Physical Exam Exam: Exam: General: AOx3, no acute distress Resp: CTA bilaterally CVS: S1, S2, RRR GI: +BS, NT, no distention Skin: Warm, dry. Right breast with clean and dry dressing in place. Small area of induration erythema surrounding incision site. No purulent discharge Neuro: Cranial nerves II-XII grossly intact bilaterally. Motor grossly intact bilaterally Extremities: No edema Psych: Appropriate affect Vital Signs: Vital Signs: Last Vital Signs Temp 97.9 F 01/18/25 07:44 Pulse 90 01/18/25 07:44 Resp 16 01/18/25 07:44 BP 145/88 H 01/18/25 07:44 Pulse Ox 95 01/18/25 07:44 O2 Del Method Room Air 01/18/25 07:44 BMI result Body Mass Index 36.3 DS: Data Data Completed and Pending Labs on day of discharge: Laboratory Results - last 24 hr 01/17/25 01/17/25 01/17/25 03:37 16:16 19:39 Hold Purple Top Creatinine Estim Creat Clear Calc Estimated GFR POC Glucose 232 H 270 H Estimat Average Glucose 280 Hemoglobin A1c % 11.4 H Vancomycin Trough 01/18/25 01/18/25 01/18/25 07:19 08:13 08:17 Hold Purple Top SEE NOTE Creatinine 0.46 L Estim Creat Clear Calc 186.6 Estimated GFR > 60 POC Glucose 261 H Estimat Average Glucose Hemoglobin A1c % Vancomycin Trough 3.7 L 01/18/25 11:21 Hold Purple Top Creatinine Estim Creat Clear Calc Estimated GFR POC Glucose 259 H Estimat Average Glucose Hemoglobin A1c % Vancomycin Trough Preliminary micro results at discharge 01/16/25 23:07 Routine Culture - Preliminary Breast Right Strep agalactiae (Grp B) 01/16/25 21:14 Blood Culture - Preliminary Blood - Venous No growth after 24 hours. 01/16/25 21:14 Blood Culture - Preliminary Blood - Venous No growth after 24 hours. Discharge Plan Discharge Anticipated Discharge Date/Time: 01/18/25 11:31 Patient Disposition: Home, Self-Care Discharge Diagnosis: Right breast abscess with sepsis Referrals: Janki Bond MD [Primary Care Provider, Internal Medicine] - 1 Week Discharge Medications: New (DME) FreeStyle Lite Strips Strip Qty: 100 0RF Rx Instructions: Test four times a day or as directed. (DME) blood-glucose meter [FreeStyle Lite Meter] Kit Qty: 1 0RF Rx Instructions: As Directed alcohol swabs Pads, Medicated 1 pad TOPICAL QIDACHS Qty: 100 0RF Rx Instructions: Use four times a day or as directed. insulin lispro [Humalog KwikPen Insulin] 100 unit/mL insulin pen 0 sliding scale dose SUBCUT QIDACHS Qty: 15 0RF Rx Instructions: Blood Sugar: <150 - 0 units 151-200 - 2 units 201-250 - 4 units 251-300 - 6 units 301-350 - 8 units >350 - 10 units insulin glargine [Lantus Solostar U-100 Insulin] 100 unit/mL (3 mL) insulin pen 15 unit SUBCUT BEDTIME Qty: 15 0RF (DME) pen needle, diabetic 32 gauge x 1/4 needle Qty: 100 0RF Rx Instructions: Use four times a day or as directed. (DME) lancets [FreeStyle Lancets] 28 gauge misc Qty: 100 0RF Rx Instructions: Test four times a day or as directed. amoxicillin-pot clavulanate 875-125 mg tablet 1 tab PO BID Qty: 11 0RF Rx Instructions: Take one tablet twice a day with meals for the next five days, starting the evening of 01/18 and ending on 01/23 Continued naproxen sodium [Aleve] 220 mg Tablet 440 - 660 mg PO BID PRN (Reason: Pain) [id number] carb-vit K 18 mg iron-400 mcg-500 mg Tablet 1 tab PO DAILY Discharge Orders: Discharge Order (Routine); Ordered 01/18/25 Ordered By: Leon Hagen Activity on Discharge: As tolerated Stand Alone Forms: Patient Portal Discharge page Print Language: French Care Plan Goals: See below Health Concerns: Breast abscess Sepsis Uncontrolled type 2 diabetes Hyperglycemia Plan of Treatment: You were admitted to the hospital for right breast abscess meeting sepsis criteria. You underwent incision and drainage in the emergency room and were treated with IV antibiotics. You were seen and evaluated by General surgery who felt there was no indication for emergent surgical intervention. You were also noted to be hyperglycemic and with uncontrolled type 2 diabetes. He will be discharged on oral antibiotics and both short-acting and long-acting insulin. -- Take Augmentin 875mg twice a day with food for the next 5 days, starting this evening and ending on 01/23. Complete entire course of antibiotics. -- You will be prescribed short-acting sliding scale insulin and long-acting Lantus 15 units at bedtime. Monitor POC four times a day: in the morning, before lunch and dinner, and at bedtime, and administer appropriate insulin dose according to sliding scale. Adhere to a diabetic diet and snacking. -- Follow up with PCP in 1 week for routine post-hospitalization visit. PCP should evaluate for resolution of breast abscess/cellulitis and consider starting you on oral diabetic medications -- radiology recommends follow up imaging in 1-2 months at breast Imaging Center to ensure resolution of abscess, as inflammatory breast cancer can have an overlapping appearance Assessment: See discharge summary
--- NOTE | 2025-01-18 12:37 | MHC.CM.PN ---
pt dcd home self care
[2025-01-18 12:56] VITALS: BP 140/68; PULSE 105; RESP 18; TEMP 36.8; O2SAT 96
== END 2025-01-18 13:46 | disposition home or self-care (01) | DRG 720 ==
LOC: HO.ED 23:08 → HO.EDOVER 23:11 → HO.S3 01-17 04:49
PROVIDERS: Physician Assistant Medical; Admitting Provider Hospitalist; Emergency Provider Emergency Medicine; PCP Internal Medicine; Visit Provider Student in an Organized Health Care Education/Training Program
DX: A41.9 Sepsis, unspecified organism (principal); E11.65 Type 2 diabetes mellitus with hyperglycemia; N61.1 Abscess of the breast and nipple; E28.2 Polycystic ovarian syndrome; E66.9 Obesity, unspecified; Z68.36 Body mass index [BMI] 36.0-36.9, adult; Z71.3 Dietary counseling and surveillance; Z91.148 Patient's other noncompliance with medication regimen for other reason
CPT/HCPCS: 36415; 76642; 80048; 80053; 80202; 82565; 82947; 83036; 83605; 84702; 85025; 85652; 86140; 87040; 87070; 87147; 87205; 99285; J1650; J1885; J2004; J2270; J2543; J3374; J7120

== ENCOUNTER → 2025-01-16 17:06 | Outpatient (BNV) | payer OTHER, SELFPAY | PROVIDERS: Visit Provider Radiology Diagnostic Radiology | DX: N61.1 Abscess of the breast and nipple (principal) | CPT/HCPCS: 76642 ==

== ENCOUNTER → 2025-01-16 23:01 | Outpatient (BNV) | payer OTHER, SELFPAY | PROVIDERS: Admitting Provider Hospitalist; Emergency Provider Emergency Medicine; PCP Internal Medicine | DX: N61.1 Abscess of the breast and nipple (principal) | CPT/HCPCS: 99232 ==

== ENCOUNTER → 2025-01-16 23:01 | Outpatient (BNV) | payer OTHER, SELFPAY | PROVIDERS: Admitting Provider Hospitalist; Emergency Provider Emergency Medicine; PCP Internal Medicine; Visit Provider Student in an Organized Health Care Education/Training Program | DX: N61.1 Abscess of the breast and nipple (principal); E11.9 Type 2 diabetes mellitus without complications; Z79.4 Long term (current) use of insulin | CPT/HCPCS: 99223; 99232; 99239 ==

== ENCOUNTER 2025-01-24 09:19 | Outpatient (AMB) | payer OTHER, SELFPAY ==
--- NOTE | 2025-01-24 09:20 | A.OFFPC_ITS ---
Vital Signs 01/24/25 09:29 Height 5 ft 3.31 in Weight 203 lb 6 oz BMI 35.7 BP 128/92 H Blood Pressure Location Rt brachial Position Sitting Respiration 16 Pulse 94 Pulse Source Pulse Oximeter Temp 98.1 F Temp Source Oral Pulse Oximetry (%) 98 Oxygen Delivery Method Room Air Intake Visit Reasons: D/C from [facility], abscess on her breast Intake Note: had an abscess on breast and sugar high at hospital. Vp Design Required: No Accompanied by: Self / Same As Patient Allergies No Known Allergies Allergy (Verified 01/24/25 09:21) Tobacco use date assessed: 01/24/25 Dental Screening Dental Screen Date: 01/24/25 Did you have a dental visit in the last 12 months?: Yes Did you have a dental problem in the last 6 months where you did not have access to dental care?: No Was dental information given to patient?: Patient has dentist HPI HPI Comments History of Present Illness Details History of Present Illness The patient is a 29-year-old female presenting with a history of Type 2 Diabetes Mellitus and recent right breast abscess. Type 2 Diabetes Mellitus: - Diagnosed in 2019, treated post-hospit alization with insulin - Current hemoglobin A1c at 11.4% - Management includes Lantus and lispro sliding scale Right Breast Abscess: - Recent abscess treated with drainage a nd antibiotics - Improvement noted in symptoms Obesity, Class 2: - Consideration for GLP-1 agonist therap y Endometriosis: - Chronic pelvic pain managed with non-p rescription means Anemia secondary to menorrhagia: - Heavy menstrual periods contributing t o anemic state Health Maintenance - Referral to a lpta and ophthalmo logist for diabetic foot and eye care - Referral to a machine worker for diet ma nagement - Discussion on the need for vaccination s (flu and pneumococcal) and screening for hepatitis B, C, and HIV Review of Systems - General: Denies significant distress; discusses high blood sugar - Breast: Recent abscess with decreased pain post-treatment - Endocrine: Reports high blood sugar; d enies thyroid issues - Nervous: Denies neurological symptoms - Reproductive: Reports very heavy menst rual periods 10-point ROS reviewed and negative excep t as noted in HPI Allergies Medications - Lantus 15 units at night for diabetes management - Lispro insulin on a sliding scale for diabetes management - Augmentin 875 mg b.i.d., completed cou rse - Naprosyn for pain management - Multivitamin for nutritional support Medication History - Augmentin 875 mg b.i.d. for 5 days - Lispro sliding scale - Lantus 15 units at night - Naprosyn - Multivitamin Current Substance Use Substance Use History - Denies current tobacco use, though fam gallo members do smoke Past Medical History - Type 2 Diabetes Mellitus, poorly contr olled - Right breast abscess, recently treated - Elevated BMI, Class 2 Obesity - Endometriosis with pelvic pain - Anemia secondary to menorrhagia Past Surgical History Family History - Maternal history of cysts Social History - Patient performs [employer] work, including [employer] and [employer] - with an 8-year-old daughter - Engaged in care of multiple pets - Experiences financial instability and insurance issues Physical Exam General: No apparent distress. Alert and oriented x 3. Head:Normocephalic, atraumatic Eyes: Pupils equal, round, and reactive to light.Extraocular movements intact Throat: Oropharynx clear. Mucus membranes moist Neck: Supple. No left anterior descending artery distention. No jugular vein distention. No bruit. Cardiovascular: Regular rate and rhythm. Normal S1 and S2. Nomurmurs, rubs, or gallops Lungs: Clear to auscultation bilaterally. Breath sounds equal bilaterally. No rales, ronchi, or wheezes. Abdomen: Non-tender. Non-distended. Bowel sounds auscultated. Nohepatosplenomegaly. No mass/rebound/guarding Extremities: No swelling over lower legs.lubbing, cyanosis, and edema. 2+ pulses Neuro: Central nerves II-XII grossly intact. Motor/sensory intact. Reflexes 2. Gait normal Skin: Warm, dry, and intact. No rash. Discussion Notes During this visit, I discussed the suboptimal control of the patient's Type 2 Diabetes and the need for more aggressive glycemic control. We addressed her recent hospitalization for a right breast abscess which has improved following drainage and antibiotics. I emphasized the importance of hemoglobin A1c and its implications for long-term diabetes management, including the necessity for regular monitoring. We deliberated on lifestyle modifications and weight management, potentially requiring GLP-1 agonist therapy. The risks of kidney damage with uncontrolled diabetes were explained as reasons for consistent follow-up care. Preventative measures, including vaccines and routine sc reenings, were suggested. We also discussed practical management of endometriosis-related pain and menorrhagia-related anemia. I provided information on accessing a continuous glucose monitoring system to alleviate her anxiety regarding frequent glucose testing. Follow-up referrals to specialists for comprehensive diabetic care were outlined, along with anticipatory guidance for regular pap smears and proactive management of her overall health. Plan 1. Type 1 diabetes mellitus with other s pecified complication E10.69 HCC 18 - Adjust Lantus dose increased to 20 at night current A1c 11.4; continue lispro sliding scale; recheck A1c in 2 months - Consider metformin based on renal func tion labs and add Ozempic 2. Abscess of the breast and nipple N61.1 - Monitor abscess resolution; follow-up imaging in April 3. Obesity, class 2 E66.812 - Consider potential GLP-1 agonist thera py; emphasize lifestyle modifications 4. Endometriosis, unspecified N80. 9 - Continue conservative pain management 5. Anemia Secondary To Menorrhagia - Plan hemoglobin levels recheck; possib le treatment adjustment Anticapatory Guidance - Discussed plans for regular follow-ups every 3-6 months for diabetes management depending on control - Emphasized the importance of immunizat ions and regular pap smears for preventative care Patient Instructions - Increase Lantus to 20 units at bedtime - Follow diabetic dietary recommendation s and write down your blood sugar readings - Schedule follow-up appointments - Take any prescribed medications as dir ected - Consider vaccination updates and speci alist referrals as noted - Monitor for signs of infection or wors ening symptoms and seek care if necessary - Maintain a healthy lifestyle with alf nced diet and regular exercise PFSH Family History (Updated 01/24/25 @ 09:21 by Pat Mccollum MA) Father No problems noted. Mother No problems noted. Social History (Updated 01/24/25 @ 09:22 by Pat Mccollum MA) Housing: Apartment Do you presently have visiting nurse or other home services: No Alcohol intake: current Alcohol intake frequency: does not drink Patient Tobacco Use Status: Never used Tobacco e-Cigarette/Vaping Use: Former Use Second Hand Smoke Exposure: No service: No Current occupational status: employed Cognitive needs: No Hearing needs: No Vision needs: No Questionnaire PHQ-9 Over the last 2 weeks, how often have you been bothered by any of the following problems? 1. Little interest or pleasure in doing things: several days 2. Feeling down, depressed, or hopeless: several days 3. Trouble falling or staying asleep, or sleeping too much: several days 4. Feeling tired or having little energy: several days 5. Poor appetite or overeating: several days 6. Feeling bad about yourself - or that you are a failure or have let yourself or your family down: several days 7. Trouble concentrating on things, such as reading the newspaper or watching television: several days 8. Moving or speaking so slowly that other people could have noticed. Or the opposite - being so fidgety or restless that you have been moving around a lot more than usual: not at all 9. Thoughts that you would be better off or of hurting yourself in some way: not at all Total score: 7 Depression Screening Interpretation: Positive Depression Screening Done: Yes Source: Developed by Drs. Jamal Mayfield, Brianna Mcdaniel, Kaiden Hall and colleagues, with an educational ismael from [employer]. Thrive Questionnaire Date Thrive assessed: 01/24/25 I am a: Patient What is your living situation today?: I have a steady place to live Within the past 12 months, did the food you bought not last and you didn't have the money to get more?: Never true Within the past 12 months, did you worry whether your food would run out before you got money to buy more?: Never true Do you have trouble paying for medicines?: No Do you have trouble getting transportation to medical appointments?: No Do you have trouble paying your heating and electricity bill?: I choose not to answer this question Do you have trouble taking care of your child, family member or friend?: No Do you have trouble with day-to-day activities such as bathing, preparing meals, shopping, managing finances, etc.?: No Are you currently unemployed and looking for a job?: No Are you interested in more education?: No Please select the resources that you would like help with: None Currently or been in a relationship where the following occur: No concerns reported THRIVE Score: 0 AUDIT C Alcohol Use Questionnaire (AUDIT-C) 1. How often do you have a drink containing alcohol?: Never 3. How often do you have six or more drinks on one occasion?: Never Total Score: 0 BRANDON-7 AMB Questionnaire BRANDON-7 Date BRANDON - 7 assessed: 01/24/25 Feeling nervous, anxious, or on edge: 1 = Several days Not being able to stop or control worryin = Several days Worrying too much about different things: 1 = Several days Trouble relaxin = Not at all Being so restless that it is hard to sit still: 0 = Not at all Becoming easily annoyed or irritable: 1 = Several days Feeling afraid as if something awful might happen: 1 = Several days Total BRANDON-7 score (0-4 normal; 5-9 mild; 10-14 moderate; 15-21 severe): 5 Source: Developed by Drs. Jamal Mayfield, Brianna Mcdaniel, Kaiden Hall and colleagues, with an educational ismael from [employer]. Physical exam (Primary Care) Tobacco/Smoking Status: Tobacco use Status Tobacco use date assessed 01/24/25 01/24/25 09:22 Patient Tobacco Use Status Never used Tobacco 01/24/25 09:22 e-Cigarette/Vaping Use Former Use 01/24/25 09:22 PHQ-9: PHQ-9 Score PHQ-9: Total score 7 01/24/25 09:22 Depression Screening Interpretation: Positive Thrive Assessment: Date of Thrive Assessment Date Thrive assessed 01/24/25 01/24/25 09:22 Currently or been in a relationship where the following occur: No concerns repo rted Coding Level of Care Code New Pt Level 3 (21564) Diagnoses Insulin dependent type 2 diabetes mellitus E11.9; Z79.4 Abscess of right breast N61.1 Establishing care with new doctor, encounter for Z76.89 Routine lab draw Z01.89 Screening for depression Z13.31 Screening for lipoid disorders Z13.220 Hypertension screen Z13.6 Counseling, unspecified Z71.9 Dietary counseling Z71.3 Exercise counseling Z71.82 Adjustment disorder with mixed anxiety and depressed mood F43.23 Class 2 obesity E66.812 Assessment & Plan Assessment & Plan (1) Insulin dependent type 2 diabetes mellitus: Code(s): E11.9 - Type 2 diabetes mellitus without complications; Z79.4 - long-term (current) use of insulin Category: Medical (2) Abscess of right breast: Code(s): N61.1 - Abscess of the breast and nipple Category: Medical (3) Establishing care with new doctor, encounter for: Code(s): Z76.89 - Persons encountering health services in other specified circumstances (4) Routine lab draw: Code(s): Z01.89 - Encounter for other specified special examinations (5) Screening for depression: Code(s): Z13.31 - Encounter for screening for depression (6) Screening for lipoid disorders: Code(s): Z13.220 - Encounter for screening for lipoid disorders (7) Hypertension screen: Code(s): Z13.6 - Encounter for screening for cardiovascular disorders (8) Counseling, unspecified: Code(s): Z71.9 - Counseling, unspecified (9) Dietary counseling: Code(s): Z71.3 - Dietary counseling and surveillance (10) Exercise counseling: Code(s): Z71.82 - Exercise counseling (11) Adjustment disorder with mixed anxiety and depressed mood: Code(s): F43.23 - Adjustment disorder with mixed anxiety and depressed mood (12) Class 2 obesity: Code(s): E66.812 - Obesity, class 2 Plan Orders: Orders Complete Blood Count Auto Diff Today Z13.9 - Encounter for screening, unspecified, Z76.89 - Persons encountering health services in other specified circumstances Comprehensive Met. Panel Today Z13.9 - Encounter for screening, unspecified, Z76.89 - Persons encountering health services in other specified circumstances Hepatitis B Surface Antibody Today Z13.9 - Encounter for screening, unspecified, Z76.89 - Persons encountering health services in other specified circumstances Hepatitis B Surface Antigen Today Z13.9 - Encounter for screening, unspecified, Z76.89 - Persons encountering health services in other specified circumstances Hepatitis C Antibody Today Z13.9 - Encounter for screening, unspecified, Z76.89 - Persons encountering health services in other specified circumstances Lipid Panel Today Z13.9 - Encounter for screening, unspecified, Z76.89 - Persons encountering health services in other specified circumstances Microalbumin, Random (w Creat) Today Z13.9 - Encounter for screening, unspecified, Z76.89 - Persons encountering health services in other specified circumstances Magnesium Today Z13.9 - Encounter for screening, unspecified, Z76.89 - Persons encountering health services in other specified circumstances TSH reflex Free T4 Today Z13.9 - Encounter for screening, unspecified, Z76.89 - Persons encountering health services in other specified circumstances Vitamin D 1,25 dihydroxy Today Z13.9 - Encounter for screening, unspecified, Z76.89 - Persons encountering health services in other specified circumstances HIV Ab/Ag Today Z13.9 - Encounter for screening, unspecified, Z76.89 - Persons encountering health services in other specified circumstances UA CC w/rflx Micro + Cult Today Z13.9 - Encounter for screening, unspecified, Z76.89 - Persons encountering health services in other specified circumstances Vitamin B12 Today Z13.9 - Encounter for screening, unspecified, Z76.89 - Persons encountering health services in other specified circumstances Referrals Nutrition/Dietitian Referral E11.9 - Type 2 diabetes mellitus without complications, Z13.9 - Encounter for screening, unspecified, Z76.89 - Persons encountering health services in other specified circumstances, Z79.4 - policy analyst (current) use of insulin Podiatry Referral E11.9 - Type 2 diabetes mellitus without complications, Z13.9 - Encounter for screening, unspecified, Z76.89 - Persons encountering health services in other specified circumstances, Z79.4 - policy analyst (current) use of insulin Ophthalmology Referral E11.9 - Type 2 diabetes mellitus without complications, Z13.9 - Encounter for screening, unspecified, Z76.89 - Persons encountering health services in other specified circumstances, Z79.4 - policy analyst (current) use of insulin Medications: New carbamide peroxide 6.5% (Debrox) 5 drps otic (ears) Q12H 15 mL 0RF 4 days Discontinued amoxicillin-pot clavulanate 875-125 mg Take one tablet twice a day with meals for the next five days, starting the evening of 01/18 and ending on 01/23 Discontinued Reason: Patient Completed Course 1 tab PO BID 11 tabs 0RF
[2025-01-24 09:29] VITALS: BP 128/92; PULSE 94; RESP 16; TEMP 36.7; O2SAT 98; BMI 35.7
== END 2025-01-24 10:03 | disposition home or self-care (01) ==
PROVIDERS: PCP Student in an Organized Health Care Education/Training Program; Visit Provider Student in an Organized Health Care Education/Training Program
DX: E11.9 Type 2 diabetes mellitus without complications (principal); Z79.4 Long term (current) use of insulin; N61.1 Abscess of the breast and nipple; F43.23 Adjustment disorder with mixed anxiety and depressed mood; E66.812 Obesity, class 2

== ENCOUNTER 2025-01-24 09:19 | Outpatient (REF) | payer OTHER, SELFPAY ==
[2025-01-24 13:22] LABS: Appearance Urine Turbid; Glucose Urine UA >=1000 mg/dL (Negative); PH 5.5 (5.0-9.0); Specific Gravity - Urine >= 1.030 (1.005-1.025); UMIC TRIGGER UACC YES
[2025-01-24 13:39] LABS: UACC Culture Trigger YES
[2025-01-24 13:54] LABS: MANUAL DIFF FLAG NO
[2025-01-24 14:02] LABS: Hematocrit 37.1 % (37.0-47.0); Hemoglobin 12.2 g/dl (12.0-16.0); Imm Gran Abs Auto 0.03 X10*3/uL (0.00-0.03); Imm Gran Pct Auto 0.4 % (0.0-0.4); Lymphocytes Absolute Auto 2.5 X10*3/uL (1.2-4.9); Mean Corpuscular HGB Conc 32.9 g/dl (31.0-35.0); Mean Corpuscular Hemoglobin 24.6 pg (27.0-33.0); Mean Corpuscular Volume 74.9 fL (80.0-98.0); NRBC Abs Auto 0.000 X10*3/uL (0.0-0.012); NRBC Pct Auto 0.0 /100WBC (0.0-0.2); Platelet Count 372 X10*3/uL (160-400); Red Blood Count 4.95 X10*6/uL (4.20-5.50); White Blood Count 8.2 X10*3/uL (4.8-10.8)
[2025-01-24 14:25] LABS: Alanine Aminotransferase 14 U/L (0-31); Albumin Level 4.3 g/dL (3.5-5.0); Alkaline Phosphatase 61 U/L (39-117); Anion Gap 10 (12-20); Aspartate Amino Transferase 27 U/L (5-31); Blood Urea Nitrogen 18 mg/dL (9-16); Calcium 9.5 mg/dL (8.4-10.2); Carbon Dioxide 23 mmol/L (22-29); Chloride 108 mmol/L (96-108); Cholesterol 230 mg/dL (<200); Estimated Glomerular Filt Rate > 60; HDL Cholesterol 36 mg/dL (>40); Magnesium 1.8 mg/dL (1.6-2.6); Potassium 4.2 mmol/L (3.3-5.1); Sodium 137 mmol/L (135-145); Total Protein 7.3 g/dL (6.5-8.0); Triglycerides 121 mg/dL (<150)
[2025-01-24 14:36] LABS: Microalbum/Creatinine Ratio Ur 75.2 ug/mg cr (<30)
[2025-01-24 14:42] LABS: Vitamin B12 423 pg/mL (200-900)
[2025-01-26 06:07] LABS: HBS Num1 10.04 mIU/mL (0-7.99); HBsAGNum1 0.36 S/CO (0.00-0.99); HIV Num 1 0.05 S/CO (0.00-0.99); Hepatitis B Surface Antigen Negative (Negative); ~HepC Num1 0.14 S/CO (0.00-0.79); ~Hepatitis C Antibody Nonreactive (Nonreactive)
[2025-01-26 07:54] LABS: HBS Num2 10.11 mIU/mL (0-7.99); HBS Num3 9.96 mIU/mL (0-7.99); ~Hepatitis B Surface Antibody GRAYZONE (Nonreactive)
[2025-01-31 01:03] LABS: VITAMIN D (1,25 OH) D3 62 pg/mL; Vit D (1,25-Dihydroxy) Total 62 pg/mL (18-72); Vitamin D (1,25 OH) D2 <8 pg/mL
== END 2025-01-24 09:20 | disposition home or self-care (01) ==
LOC: HO.HKASLDS 09:19
PROVIDERS: PCP Student in an Organized Health Care Education/Training Program; Visit Provider Student in an Organized Health Care Education/Training Program
DX: Z76.89 Persons encountering health services in other specified circumstances (principal); Z13.9 Encounter for screening, unspecified; Z01.89 Encounter for other specified special examinations; Z13.31 Encounter for screening for depression; Z13.220 Encounter for screening for lipoid disorders; Z13.6 Encounter for screening for cardiovascular disorders; Z71.9 Counseling, unspecified; Z71.3 Dietary counseling and surveillance; Z71.82 Exercise counseling; N61.1 Abscess of the breast and nipple; E11.9 Type 2 diabetes mellitus without complications; F43.23 Adjustment disorder with mixed anxiety and depressed mood; E66.812 Obesity, class 2; Z79.4 Long term (current) use of insulin; Z79.899 Other long term (current) drug therapy; Z68.35 Body mass index [BMI] 35.0-35.9, adult
CPT/HCPCS: 36415; 80053; 80061; 81001; 82043; 82570; 82607; 82652; 83735; 84443; 85025; 86706; 86803; 87086; 87340; 87389; 99202

== ENCOUNTER 2025-01-31 10:16 | Outpatient (AMB) | payer OTHER, SELFPAY ==
[2025-01-31 10:26] VITALS: BMI 36.0
--- NOTE | 2025-01-31 10:26 | A.OFFVIS_ITS ---
Vital Signs 01/31/25 10:26 Height 5 ft 3 in Weight 203 lb BMI 36.0 Intake Visit Reasons: Diabetic foot evaluation Intake Note: Chkiis is a 29 year old female who presents today as a new patient for diabetic foot exam. She states her glucose this morning was 241. Last reported A1c was 11% and was taken at the ED on 01/16/25. Patient reports no numbness or tingling in her feet however she notes occasional bilateral feet swelling Allergies No Known Allergies Allergy (Verified 01/31/25 10:27) Medication List - Last Reconciled 01/31/25 by Kiara Rick DPM alcohol swabs 1 pad topical QIDACHS blood sugar diagnostic (FreeStyle Lite Strips) Test four times a day or as directed. blood-glucose meter (FreeStyle Lite Meter kit) As Directed blood-glucose sensor (FreeStyle Lala 3 Plus Sensor device) As directed blood-glucose,animal rescuer,cont (FreeStyle Lala 3 [place]) As directed [diabetic shoes, socks, and inserts Please provide patient with a pair of diabetic shoes and 2 pairs of diabetic insoles & socks.] insulin glargine (Lantus Solostar U-100 Insulin) 15 units (0.15 mL) subcut BEDTIME insulin lispro (Humalog KwikPen (U-100) Insulin) Blood Sugar: <150 - 0 units 151-200 - 2 units 201-250 - 4 units 251-300 - 6 units 301-350 - 8 units >350 - 10 units lancets (FreeStyle Lancets) Test four times a day or as directed. eg-af-tyou-FA-Ca carb-vit K 18 mg iron-400 mcg-500 mg 1 tab PO DAILY naproxen sodium (Aleve) 440 - 660 mg PO BID PRN pen needle, diabetic Use four times a day or as directed. HPI Comments Details: The patient is a 29-year-old female with a past medical history as seen below presenting for diabetic foot exam. She was recently hospitalized due to high blood sugar levels, which were recorded in the 300s, and an abscess on her breast. Her blood sugar levels have since decreased to around 250, indicating some improvement. Patient states her A1c was approximately 11%. The patient reports experiencing peripheral neuropathy symptoms in her hands, characterized by pins and needles sensations, but denies any numbness and tingling to the feet. She has been prescribed insulin and is attempting dietary changes to manage her diabetes. She denies any pedal injuries. She denies any other pedal concerns. She denies any current nausea, vomiting, fever, or chills. [facility] Medical History (Updated 01/31/25 @ 10:56 by Kiara Rcik DPM) Diabetes mellitus with hyperglycemia Pes planus of both feet Family History (Updated 01/24/25 @ 09:21 by Pat Mccollum MA) Father No problems noted. Mother No problems noted. Social History (Updated 01/24/25 @ 09:29 by Pat Mccollum MA) Housing: Apartment Do you presently have visiting nurse or other home services: No Alcohol intake: current Alcohol intake frequency: does not drink Patient Tobacco Use Status: Never used Tobacco e-Cigarette/Vaping Use: Former Use Second Hand Smoke Exposure: No service: No Current occupational status: employed Cognitive needs: No Hearing needs: No Vision needs: No Review of Systems Const Details: - Endocrine: Reports high blood sugar levels, currently around 250 mg/dL. - Neurological: Reports pins and needles sensation in hands. Denies numbness or tingling in feet. - Integumentary: Reports recent abscess on breast. - Musculoskeletal: Reports occasional swelling. All systems reviewed & are unremarkable except as noted in HPI and below Physical Exam Vital Signs: BMI result Body Mass Index 36.0 Extrem Other: Bilateral lower extremity focused physical exam: Derm: No open lesions abrasions or wounds noted. Skin turgor supple and within normal limits. No erythema ecchymosis noted. No clinical signs of infection. Toenails X 10 noted to be within normal length at this time. Vascular: DP/PT pulses palpable. Capillary refill time less than 3 seconds. Temperature gradient warm to warm. Mild edema noted to bilateral feet. Pedal hair present. No varicosities noted. Neuro: Protective sensation is grossly intact. MSK: No pain on palpation to the feet and ankles. Range of motion of the forefoot hindfoot and ankles within normal limits. No crepitus noted. Nonantalgic gait unassisted noted. Pes planus foot type. No gross abnormalities noted. Office Procedures Diabetic Foot Exam G9226 - Diabetic Foot Exam Results Reviewed Results Reviewed: Laboratory Tests 01/24/25 10:16 Random Glucose 258 H Patient states her A1c was approximately 11%. 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 I discussed with the patient the importance of maintaining control blood sugar levels to prevent complications such as neuropathy and vision problems. We talked about the benefits of insulin therapy and dietary changes. I advised regular foot care and the use of diabetic socks and shoes to prevent injuries. 1. Diabetic foot exam - Continue insulin therapy and dietary modifications to manage blood glucose levels. - Schedule routine nail care every 9 weeks. - Prescribed diabetic socks, insoles, and shoes to aid in foot care and prevent injuries. - Monitor for any signs of worsening neuropathy or new symptoms. - Patient is to monitor her feet daily. - Patient is to avoid barefoot walking and is to wear supportive shoe gear. - Recommended use of OTC insoles: Superfeet green. Patient is to return to the office in 9 weeks for routine diabetic foot/nail care. Medications: New [diabetic shoes, socks, and inserts] Please provide patient with a pair of diabetic shoes and 2 pairs of diabetic insoles & socks. 1 ea 0RF Diabetic E11.9 - Type 2 diabetes mellitus without complications, Z79.4 - assisted (current) use of insulin Coding Level of Care Code New Pt Level 4 (23887) Diagnoses Insulin dependent type 2 diabetes mellitus E11.9; Z79.4 Pes planus of both feet M21.41; M21.42 Diabetes mellitus with hyperglycemia E11.65 Diabetes mellitus type: type 2 CPT Codes Diabetic Foot Exam - CPT: G9226 - Diabetic Foot Exam ([id number]) Time Spent (min) 55
== END 2025-01-31 10:47 | disposition home or self-care (01) ==
LOC: HO.HPODS 10:17
PROVIDERS: PCP Student in an Organized Health Care Education/Training Program; Visit Provider Student in an Organized Health Care Education/Training Program
DX: E11.9 Type 2 diabetes mellitus without complications (principal); Z79.4 Long term (current) use of insulin; M21.41 Flat foot [pes planus] (acquired), right foot; E11.65 Type 2 diabetes mellitus with hyperglycemia; M21.42 Flat foot [pes planus] (acquired), left foot
CPT/HCPCS: 99204; G9226

== ENCOUNTER → 2025-01-31 10:16 | Outpatient (BNVA) | payer OTHER, SELFPAY | PROVIDERS: PCP Student in an Organized Health Care Education/Training Program; Visit Provider Student in an Organized Health Care Education/Training Program | DX: E11.65 Type 2 diabetes mellitus with hyperglycemia (principal); M21.41 Flat foot [pes planus] (acquired), right foot; M21.42 Flat foot [pes planus] (acquired), left foot; Z79.4 Long term (current) use of insulin | CPT/HCPCS: 99202 ==

== ENCOUNTER 2025-02-02 10:51 | Outpatient (AMB) | payer OTHER, SELFPAY ==
--- NOTE | 2025-02-02 11:04 | A.OFFPC_ITS ---
Vital Signs 02/02/25 11:05 Height 5 ft 3 in Weight 206 lb 2 oz BMI 36.5 BP 123/83 Blood Pressure Location Lt brachial Position Sitting Respiration 16 Pulse 94 Pulse Source Pulse Oximeter Temp 98 F Temp Source Oral Pulse Oximetry (%) 98 Oxygen Delivery Method Room Air Intake Visit Reasons: follow up labs Intake Note: had an abscess on breast and sugar high at hospital. Configuration Manager Required: No Accompanied by: Self / Same As Patient Allergies No Known Allergies Allergy (Verified 01/31/25 10:27) Tobacco use date assessed: 01/24/25 Dental Screening Dental Screen Date: 01/24/25 Did you have a dental visit in the last 12 months?: Yes Did you have a dental problem in the last 6 months where you did not have access to dental care?: No Was dental information given to patient?: Patient has dentist HPI HPI Comments History of Present Illness Details History of Present Illness The patient is a 29-year-old female presenting for follow-up on previously ordered lab results and management of diabetes mellitus. Diabetes Mellitus: - The patient is adjusting insulin doses between 20 units based on glucose readings, with a noted downward trend in levels. - Morning glucose levels remain above ta rget, and hemoglobin A1c was last recorded at 11.4%. Iron Deficiency Anemia: - Low MCV and MCH suggest iron deficienc y anemia, with treatment initiated using oral iron and vitamin C. Hyperlipidemia: - Elevated cholesterol levels are being managed with atorvastatin to reduce cardiovascular risk. Bruising: - Reports of bruising on arms, likely re lated to sensor application, with no systemic symptoms. Review of Systems - Endocrine: Reports elevated morning bl ood glucose levels, denies hypoglycemic episodes. - Hematologic: Reports bruising on arms, denies associated pain or systemic symptoms. 10-point ROS reviewed and negative excep t as noted in HPI Past Medical History - Diabetes Mellitus - Iron Deficiency Anemia - Hyperlipidemia Health Maintenance - Referral to refractory tile helper for dietary m anagement of diabetes. - Referral to needle punch operator for diabetic fo ot care and prescription of diabetic shoes. - Hepatitis B vaccination series recomme nded. Physical Exam General: Well-appearing, in no acute distress. Vital signs: Within normal limits. HEENT: Normocephalic, atraumatic. PERRLA, EOMI. Conjunctiva clear, sclera anicteric. Oropharynx clear, mucous membranes moist. TMs intact bilaterally. Neck: Supple, no lymphadenopathy, no thyromegaly, no JVD or carotid bruits. Cardiovascular: RRR, normal S1/S2, no murmurs, rubs, or gallops. Peripheral pulses 2+ and symmetric. No edema. Respiratory: Lungs clear to auscultation bilaterally, no wheezes, rales, or rhonchi. Normal effort. Abdomen: Soft, non-tender, non-distended. Normoactive bowel sounds. No hepatosplenomegaly, no masses. MSK: Full range of motion, no joint swelling or deformity. Normal gait. Skin: Warm, dry, intact. No rashes, lesions, or pallor. Noted bluish discoloration on arms, likely bruising from sensor application. Neuro: Alert and oriented x3. Cranial nerves II-XII intact. Strength 5/5 throughout. Sensation intact. Reflexes 2+ symmetric. Normal coordination and gait. Psych: Appropriate mood and affect. Normal judgment and insight. Plan 1. Diabetes Mellitus - Adjust insulin dosage between 20 and 2 3 units based on glucose monitoring. - Continue monitoring blood glucose leve ls before meals and adjust as necessary. - Follow-up in two weeks to assess gluco se control and adjust treatment plan. 2. Iron Deficiency Anemia - Initiate treatment with oral iron supp lements and vitamin C to enhance absorption. 3. Hyperlipidemia - Prescribe atorvastatin to manage adin sterol levels and reduce cardiovascular risk. 4. Bruising - Monitor bruising on arms, suspected to be related to sensor application, and document any changes. Discussion Notes During the visit, I discussed the management of diabetes mellitus, including adjusting insulin doses and monitoring blood glucose levels. We also addressed iron deficiency anemia with the initiation of iron supplements. For hyperlipidemia, atorvastatin was prescribed to manage cholesterol levels. I advised the patient to monitor any bruising and report changes. Follow-up was scheduled in two weeks to reassess glucose control and treatment efficacy. Patient was informed and verbally consented to the use of an ambient scribe for clinic note documentation during this visit. Patient Instructions - Take prescribed iron supplements and v itamin C daily to improve anemia. - Adjust insulin dosage between 20 and 2 3 units based on blood glucose readings. - Take atorvastatin as prescribed to man age cholesterol levels. - Monitor and document any changes in br uising on arms. - Follow up in two weeks for reassessmen t of diabetes management. [facility] Medical History (Updated 02/02/25 @ 12:18 by Jose J Berg MD) Class 2 obesity Diabetes mellitus with hyperglycemia Pes planus of both feet Family History Father No problems noted. Mother No problems noted. Social History Housing: Apartment Do you presently have visiting nurse or other home services: No Alcohol intake: current Alcohol intake frequency: does not drink Patient Tobacco Use Status: Never used Tobacco e-Cigarette/Vaping Use: Former Use Second Hand Smoke Exposure: No service: No Current occupational status: employed Cognitive needs: No Hearing needs: No Vision needs: No Questionnaire PHQ-9 Over the last 2 weeks, how often have you been bothered by any of the following problems? 1. Little interest or pleasure in doing things: several days 2. Feeling down, depressed, or hopeless: several days 3. Trouble falling or staying asleep, or sleeping too much: several days 4. Feeling tired or having little energy: several days 5. Poor appetite or overeating: several days 6. Feeling bad about yourself - or that you are a failure or have let yourself or your family down: several days 7. Trouble concentrating on things, such as reading the newspaper or watching television: several days 8. Moving or speaking so slowly that other people could have noticed. Or the opposite - being so fidgety or restless that you have been moving around a lot more than usual: not at all 9. Thoughts that you would be better off or of hurting yourself in some way: not at all Total score: 7 Depression Screening Interpretation: Positive Depression Screening Done: Yes Source: Developed by Drs. Jamal Mayfield, Brianna Mcdaniel, Kaiden Hall and colleagues, with an educational ismael from [employer]. Thrive Questionnaire Date Thrive assessed: 01/21/25 I am a: Patient What is your living situation today?: I have a steady place to live Within the past 12 months, did the food you bought not last and you didn't have the money to get more?: Never true Within the past 12 months, did you worry whether your food would run out before you got money to buy more?: Never true Do you have trouble paying for medicines?: No Do you have trouble getting transportation to medical appointments?: No Do you have trouble paying your heating and electricity bill?: I choose not to answer this question Do you have trouble taking care of your child, family member or friend?: No Do you have trouble with day-to-day activities such as bathing, preparing meals, shopping, managing finances, etc.?: No Are you currently unemployed and looking for a job?: No Are you interested in more education?: No Please select the resources that you would like help with: None Currently or been in a relationship where the following occur: No concerns reported THRIVE Score: 0 AUDIT C Alcohol Use Questionnaire (AUDIT-C) 1. How often do you have a drink containing alcohol?: Never 3. How often do you have six or more drinks on one occasion?: Never Total Score: 0 BRANDON-7 AMB Questionnaire BRANDON-7 Date BRANDON - 7 assessed: 01/24/25 Feeling nervous, anxious, or on edge: 1 = Several days Not being able to stop or control worryin = Several days Worrying too much about different things: 1 = Several days Trouble relaxin = Not at all Being so restless that it is hard to sit still: 0 = Not at all Becoming easily annoyed or irritable: 1 = Several days Feeling afraid as if something awful might happen: 1 = Several days Total BRANDON-7 score (0-4 normal; 5-9 mild; 10-14 moderate; 15-21 severe): 5 Source: Developed by Drs. Jamal Mayfield, Brianna Mcdaniel, Kaiden Hall and colleagues, with an educational ismael from [employer]. Physical exam (Primary Care) Vital Signs: Last Vital Signs Temp 98 F 02/02/25 11:05 Pulse 94 02/02/25 11:05 Resp 16 02/02/25 11:05 BP 123/83 02/02/25 11:05 Pulse Ox 98 02/02/25 11:05 Oxygen Delivery Method Room Air 02/02/25 11:05 BMI result Body Mass Index 36.5 Tobacco/Smoking Status: Tobacco use Status Tobacco use date assessed 01/24/25 02/02/25 11:09 Patient Tobacco Use Status Never used Tobacco 02/02/25 11:09 e-Cigarette/Vaping Use Former Use 02/02/25 11:09 PHQ-9: PHQ-9 Score PHQ-9: Total score 7 02/02/25 11:09 Depression Screening Interpretation: Positive Thrive Assessment: Date of Thrive Assessment Date Thrive assessed 01/21/25 02/02/25 11:09 Currently or been in a relationship where the following occur: No concerns reported Coding Level of Care Code Est Pt Level 3 (13078) Diagnoses Insulin dependent type 2 diabetes mellitus E11.9; Z79.4 Diabetes mellitus with hyperglycemia E11.65 Diabetes mellitus type: type 2 Encounter to discuss test results Z71.2 Hyperlipidemia E78.5 Iron deficiency anemia D50.9 Bruising at injection site T80.89XA Class 2 obesity E66.812 Assessment & Plan Assessment & Plan (1) Insulin dependent type 2 diabetes mellitus: Code(s): E11.9 - Type 2 diabetes mellitus without complications; Z79.4 - terminal gauger supervisor (current) use of insulin Category: Medical (2) Diabetes mellitus with hyperglycemia: Code(s): E11.65 - Type 2 diabetes mellitus with hyperglycemia Category: Medical Qualifiers: Diabetes mellitus type: type 2 (3) Encounter to discuss test results: Code(s): Z71.2 - Person consulting for explanation of examination or test findings (4) Hyperlipidemia: Code(s): E78.5 - Hyperlipidemia, unspecified (5) Iron deficiency anemia: Code(s): D50.9 - Iron deficiency anemia, unspecified (6) Bruising at injection site: Code(s): T80.89XA - Other complications following infusion, transfusion and therapeutic injection, initial encounter (7) Class 2 obesity: Code(s): E66.812 - Obesity, class 2 Category: Medical Plan Orders: Referrals Nurse Navigator Referral E11.9 - Type 2 diabetes mellitus without complications, Z79.4 - terminal gauger supervisor (current) use of insulin Medications: New 2 ascorbic acid (vitamin C) 500 mg PO DAILY 90 tabs 0RF ferrous sulfate (iron) 325 mg PO DAILY 90 tabs 0RF atorvastatin (Lipitor) 20 mg PO BEDTIME 90 tabs 0RF
[2025-02-02 11:05] VITALS: BP 123/83; PULSE 94; RESP 16; TEMP 36.6; O2SAT 98; BMI 36.5
== END 2025-02-02 11:30 | disposition home or self-care (01) ==
LOC: HO.HMCFMS 10:52
PROVIDERS: PCP Internal Medicine; Visit Provider Student in an Organized Health Care Education/Training Program
DX: E11.69 Type 2 diabetes mellitus with other specified complication (principal); Z79.4 Long term (current) use of insulin; E11.65 Type 2 diabetes mellitus with hyperglycemia; E66.812 Obesity, class 2; Z68.36 Body mass index [BMI] 36.0-36.9, adult; E78.5 Hyperlipidemia, unspecified; D50.9 Iron deficiency anemia, unspecified; T80.89XA Other complications following infusion, transfusion and therapeutic injection, initial encounter

== ENCOUNTER → 2025-02-02 10:51 | Outpatient (BNVA) | payer OTHER, SELFPAY | PROVIDERS: PCP Internal Medicine; Visit Provider Student in an Organized Health Care Education/Training Program | DX: Z71.2 Person consulting for explanation of examination or test findings (principal); E11.65 Type 2 diabetes mellitus with hyperglycemia; E78.5 Hyperlipidemia, unspecified; D50.9 Iron deficiency anemia, unspecified; E66.812 Obesity, class 2; Z68.36 Body mass index [BMI] 36.0-36.9, adult; S40.022A Contusion of left upper arm, initial encounter; S40.021A Contusion of right upper arm, initial encounter; Z79.4 Long term (current) use of insulin; Z13.31 Encounter for screening for depression; X58.XXXA Exposure to other specified factors, initial encounter; Y93.9 Activity, unspecified; Y92.9 Unspecified place or not applicable; Y99.9 Unspecified external cause status | CPT/HCPCS: 99212 ==

== ENCOUNTER 2025-02-15 14:12 | Outpatient (AMB) | payer OTHER, SELFPAY ==
--- NOTE | 2025-02-15 14:14 | MHC.OFFVIS ---
Vital Signs 02/15/25 14:19 Height 5 ft 3 in Weight 208 lb BMI 36.8 BP 136/62 Blood Pressure Location Rt brachial Position Sitting Pulse 93 Intake Visit Reasons: s/p breast abscess Intake Note: This patient presents for a follow-up assessment status post I&D breast abscess. Pt c/o; no redness, hot to the touch sensation, fever or chills. Wire Brush Maker Required: No Accompanied by: Self / Same As Patient Allergies No Known Allergies Allergy (Verified 02/15/25 14:20) Medication List - Last Reconciled 02/15/25 by Leon Gan MD alcohol swabs 1 pad topical QIDACHS ascorbic acid (vitamin C) 500 mg PO DAILY atorvastatin (Lipitor) 20 mg PO BEDTIME blood sugar diagnostic (FreeStyle Lite Strips) Test four times a day or as directed. blood-glucose meter (FreeStyle Lite Meter kit) As Directed blood-glucose sensor (FreeStyle Lala 3 Plus Sensor device) As directed blood-glucose,patent prosecution attorney,cont (FreeStyle Lala 3 [place]) As directed [diabetic shoes, socks, and inserts Please provide patient with a pair of diabetic shoes and 2 pairs of diabetic insoles & socks.] ferrous sulfate (iron) 325 mg PO DAILY insulin glargine (Lantus Solostar U-100 Insulin) 15 units (0.15 mL) subcut BEDTIME insulin lispro (Humalog KwikPen (U-100) Insulin) Blood Sugar: <150 - 0 units 151-200 - 2 units 201-250 - 4 units 251-300 - 6 units 301-350 - 8 units >350 - 10 units lancets (FreeStyle Lancets) Test four times a day or as directed. metformin 1,000 mg PO BID [id number] carb-vit K 18 mg iron-400 mcg-500 mg 1 tab PO DAILY naproxen sodium (Aleve) 440 - 660 mg PO BID PRN pen needle, diabetic Use four times a day or as directed. HPI HPI s/p breast abscess: Details: She had an I&D done by the ED staff last month in the hospital for a breast abscess on the right. She is here for follow up visit She says that she has had no problems anymore with the right breast. She says that the site seems to have healed completely. She denies any drainage or swelling. PFSH Medical History (Updated 02/15/25 @ 14:24 by Leon Gan MD) Breast abscess Class 2 obesity Diabetes mellitus with hyperglycemia Pes planus of both feet Family History Father No problems noted. Mother No problems noted. Social History Housing: Apartment Do you presently have visiting nurse or other home services: No Alcohol intake: current Alcohol intake frequency: does not drink Patient Tobacco Use Status: Never used Tobacco e-Cigarette/Vaping Use: Former Use Second Hand Smoke Exposure: No service: No Current occupational status: employed Cognitive needs: No Hearing needs: No Vision needs: No Review of Systems Const Denies chills and Denies fever(s) Card Denies chest pain, Denies dyspnea and Denies dyspnea on exertion Resp Denies cough, Denies dyspnea and Denies dyspnea on exertion GI Denies hematochezia and Denies change in bowel habits Denies hematuria Musc Denies back pain and Denies limited range of motion Neuro Denies focal weakness and Denies convulsions Psych Denies depression and Denies mood swings Physical Exam Const Other: Morbidly obese General: comfortable and no acute distress Chest Other: She has large breasts and the underneath the right breast is note of healed I&D site with no residual induration or fluctuance redness Resp Effort & Inspection: normal respiratory effort Assessment & Plan Assessment & Plan (1) Breast abscess: Code(s): N61.1 - Abscess of the breast and nipple Category: Medical Plan: This has completely resolved after an I and D done by the ED staff. She is doing very well. The I&D site is well healed I emphasized to her the importance of good blood sugar control. I also counseled her in the benefits of weight loss She can follow up on a p.r.n. basis. Coding Level of Care Code Est Pt Level 2 (63926) Diagnoses Breast abscess N61.1
[2025-02-15 14:19] VITALS: BP 136/62; PULSE 93; BMI 36.8
== END 2025-02-15 14:33 | disposition home or self-care (01) ==
LOC: HO.HGS 14:13
PROVIDERS: PCP Internal Medicine; Visit Provider Surgery
DX: N61.1 Abscess of the breast and nipple (principal)
CPT/HCPCS: 99212

== ENCOUNTER → 2025-02-15 14:12 | Outpatient (BNVA) | payer OTHER, SELFPAY | PROVIDERS: PCP Internal Medicine; Visit Provider Surgery | DX: N61.1 Abscess of the breast and nipple (principal) | CPT/HCPCS: 99212 ==

== ENCOUNTER 2025-02-16 09:19 | Outpatient (AMB) | payer OTHER, SELFPAY ==
[2025-02-16 09:25] VITALS: BP 144/81; PULSE 93; TEMP 36.6; O2SAT 97; BMI 37.0
--- NOTE | 2025-02-16 09:25 | MHC.PC.OV ---
Vital Signs 02/16/25 09:25 Height 5 ft 3 in Weight 209 lb BMI 37.0 BP 144/81 H Blood Pressure Location Rt brachial Position Sitting Pulse 93 Pulse Source Pulse Oximeter Temp 97.9 F Temp Source Oral Pulse Oximetry (%) 97 Intake Visit Reasons: 2 wk f/u Intake Note: had an abscess on breast and sugar high at hospital. Web Site Admin Required: No Accompanied by: Self / Same As Patient Allergies No Known Allergies Allergy (Verified 02/16/25 09:25) Tobacco use date assessed: 02/16/25 Dental Screening Dental Screen Date: 02/16/25 Did you have a dental visit in the last 12 months?: Yes Did you have a dental problem in the last 6 months where you did not have access to dental care?: No Was dental information given to patient?: Patient has dentist HPI HPI Comments History of Present Illness Details History of Present Illness The patient is a 29-year-old female presenting for management of Type 2 Diabetes Mellitus and follow-up on an abscess. Type 2 Diabetes Mellitus: - Blood glucose levels range from 175 to 180 mg/dL in the mornings, lower during the day. - Current medications include Metformin, Atorvastatin, and insulin, with insulin dosage adjustments ongoing. - No hypoglycemic episodes reported. Abscess follow-up: - Follow-up with a general surgeon confirmed healing of the abscess with no further intervention needed. Gastrointestinal side effects from Metformin: - Reports gastrointestinal discomfort since starting Metformin, despite taking it with food. - Plan to switch to extended-release Metformin if symptoms persist. Review of Systems - Endocrine: Reports stable blood glucose levels with no hypoglycemic events. - Gastrointestinal: Reports gastrointestinal discomfort since starting Metformin. 10-point ROS reviewed and negative except as noted in HPI Past Medical History - Type 2 Diabetes Mellitus - Recent abscess requiring surgical follow-up Health Maintenance - Follow-up with a recreation manager scheduled for March. - Referral to cutting and printing machine operator pending. Physical Exam General: Well-appearing, in no acute distress. Vital signs: Within normal limits. HEENT: Normocephalic, atraumatic. PERRLA, EOMI. Conjunctiva clear, sclera anicteric. Oropharynx clear, mucous membranes moist. TMs intact bilaterally. Neck: Supple, no lymphadenopathy, no thyromegaly, no JVD or carotid bruits. Cardiovascular: RRR, normal S1/S2, no murmurs, rubs, or gallops. Peripheral pulses 2+ and symmetric. No edema. Respiratory: Lungs clear to auscultation bilaterally, no wheezes, rales, or rhonchi. Normal effort. Abdomen: Soft, non-tender, non-distended. Normoactive bowel sounds. No hepatosplenomegaly, no masses. MSK: Full range of motion, no joint swelling or deformity. Normal gait. Skin: Warm, dry, intact. No rashes, lesions, or pallor. Neuro: Alert and oriented x3. Cranial nerves II-XII intact. Strength 5/5 throughout. Sensation intact. Reflexes 2+ symmetric. Normal coordination and gait. Psych: Appropriate mood and affect. Normal judgment and insight. Plan 1. Type 2 Diabetes Mellitus - Continue Metformin, Atorvastatin, and insulin. - Adjust insulin to keep morning glucose below 180 mg/dL. - Monitor for hypoglycemia. 2. Abscess Follow-Up - No further intervention needed as per surgeon. 3. Gastrointestinal Side Effects From Metformin - Monitor symptoms for another week. - Switch to extended-release Metformin if symptoms persist. Discussion Notes During the visit, we discussed the management of Type 2 Diabetes Mellitus, focusing on maintaining blood glucose levels below 180 mg/dL in the mornings. We also reviewed the patient's gastrointestinal side effects from Metformin and considered switching to an extended-release formulation if symptoms persist. The patient was advised to monitor her symptoms and report any hypoglycemic events. Follow-up with the general surgeon confirmed no further intervention is needed for the abscess. Patient was informed and verbally consented to the use of an ambient scribe for clinic note documentation during this visit. Patient Instructions - Continue taking Metformin, Atorvastatin, and insulin as prescribed. - Monitor blood glucose levels, aiming for morning levels below 180 mg/dL. - Report any hypoglycemic events or persistent gastrointestinal symptoms. - Follow up with the recreation manager and cutting and printing machine operator as scheduled. Total time spent caring for the patient today was 30 minutes. This includes time spent before the visit reviewing the chart, time spent documenting, and time spent reviewing laboratory results, diagnostic imaging, medications, performing a medically necessary evaluation, counseling on diagnoses, care coordination. [facility] Medical History Breast abscess Class 2 obesity Diabetes mellitus with hyperglycemia Pes planus of both feet Family History (Updated 02/16/25 @ 09:34 by Therese Wells CMA) Father No problems noted. Mother No problems noted. Social History Housing: Apartment Do you presently have visiting nurse or other home services: No Alcohol intake: current Alcohol intake frequency: does not drink Patient Tobacco Use Status: Former Tobacco user e-Cigarette/Vaping Use: Former Use Second Hand Smoke Exposure: No service: No Current occupational status: employed Cognitive needs: Yes (occasionally needs cane/wheelchair) Hearing needs: No Vision needs: Yes (rx glass) Questionnaire PHQ-9 Over the last 2 weeks, how often have you been bothered by any of the following problems? 1. Little interest or pleasure in doing things: several days 2. Feeling down, depressed, or hopeless: several days 3. Trouble falling or staying asleep, or sleeping too much: several days 4. Feeling tired or having little energy: several days 5. Poor appetite or overeating: several days 6. Feeling bad about yourself - or that you are a failure or have let yourself or your family down: several days 7. Trouble concentrating on things, such as reading the newspaper or watching television: several days 8. Moving or speaking so slowly that other people could have noticed. Or the opposite - being so fidgety or restless that you have been moving around a lot more than usual: not at all 9. Thoughts that you would be better off or of hurting yourself in some way: not at all Total score: 7 Depression Screening Interpretation: Positive Depression Screening Done: Yes Source: Developed by Drs. Jamal Mayfield, Brianna Mcdaniel, Kaiden Hall and colleagues, with an educational ismael from [employer]. Thrive Questionnaire Date Thrive assessed: 02/16/25 I am a: Patient What is your living situation today?: I have a steady place to live Within the past 12 months, did the food you bought not last and you didn't have the money to get more?: Never true Within the past 12 months, did you worry whether your food would run out before you got money to buy more?: Never true Do you have trouble paying for medicines?: No Do you have trouble getting transportation to medical appointments?: No Do you have trouble paying your heating and electricity bill?: I choose not to answer this question Do you have trouble taking care of your child, family member or friend?: No Do you have trouble with day-to-day activities such as bathing, preparing meals, shopping, managing finances, etc.?: No Are you currently unemployed and looking for a job?: No Are you interested in more education?: No Please select the resources that you would like help with: None Currently or been in a relationship where the following occur: No concerns reported THRIVE Score: 0 AUDIT C Alcohol Use Questionnaire (AUDIT-C) 2. How many drinks containing alcohol do you have on a typical day when you are drinking?: 1 or 2 Total Score: 0 BRANDON-7 AMB Questionnaire BRANDON-7 Date BRANDON - 7 assessed: 02/16/25 Feeling nervous, anxious, or on edge: 1 = Several days Not being able to stop or control worryin = Several days Worrying too much about different things: 1 = Several days Trouble relaxin = Not at all Being so restless that it is hard to sit still: 0 = Not at all Becoming easily annoyed or irritable: 1 = Several days Feeling afraid as if something awful might happen: 1 = Several days Total BRANDON-7 score (0-4 normal; 5-9 mild; 10-14 moderate; 15-21 severe): 5 Source: Developed by Drs. Jamal Mayfield, Brianna Mcdaniel, Kaiden Hall and colleagues, with an educational ismael from [employer]. Physical exam (Primary Care) Vital Signs: Last Vital Signs Temp 97.9 F 02/16/25 09:25 Pulse 93 02/16/25 09:25 BP 144/81 H 02/16/25 09:25 Pulse Ox 97 02/16/25 09:25 BMI result Body Mass Index 37.0 Tobacco/Smoking Status: Tobacco use Status Tobacco use date assessed 02/16/25 02/16/25 09:28 Patient Tobacco Use Status Former Tobacco user 02/16/25 09:34 e-Cigarette/Vaping Use Former Use 02/16/25 09:28 PHQ-9: PHQ-9 Score PHQ-9: Total score 7 02/16/25 09:28 Depression Screening Interpretation: Positive Thrive Assessment: Date of Thrive Assessment Date Thrive assessed 02/16/25 02/16/25 09:28 Currently or been in a relationship where the following occur: No concerns reported Coding Level of Care Code Est Pt Level 4 (39801) Diagnoses Insulin dependent type 2 diabetes mellitus E11.9; Z79.4 Class 2 obesity E66.812 Breast abscess N61.1 Medication side effect T88.7XXA Assessment & Plan Assessment & Plan (1) Insulin dependent type 2 diabetes mellitus: Code(s): E11.9 - Type 2 diabetes mellitus without complications; Z79.4 - senior living (current) use of insulin Category: Medical (2) Class 2 obesity: Code(s): E66.812 - Obesity, class 2 Category: Medical (3) Breast abscess: Code(s): N61.1 - Abscess of the breast and nipple Category: Medical (4) Medication side effect: Code(s): T88.7XXA - Unspecified adverse effect of drug or medicament, initial encounter Plan
== END 2025-02-16 09:47 | disposition home or self-care (01) ==
LOC: HO.HMCFMS 09:19
PROVIDERS: PCP Student in an Organized Health Care Education/Training Program; Visit Provider Student in an Organized Health Care Education/Training Program
DX: E11.9 Type 2 diabetes mellitus without complications (principal); Z79.4 Long term (current) use of insulin; E66.812 Obesity, class 2; N61.1 Abscess of the breast and nipple; T88.7XXA Unspecified adverse effect of drug or medicament, initial encounter

== ENCOUNTER → 2025-02-16 09:19 | Outpatient (BNVA) | payer OTHER, SELFPAY | PROVIDERS: PCP Student in an Organized Health Care Education/Training Program; Visit Provider Student in an Organized Health Care Education/Training Program | DX: E11.9 Type 2 diabetes mellitus without complications (principal); E66.812 Obesity, class 2; N61.1 Abscess of the breast and nipple; T88.7XXA Unspecified adverse effect of drug or medicament, initial encounter; Z79.4 Long term (current) use of insulin | CPT/HCPCS: 99212 ==

== ENCOUNTER 2025-03-16 09:12 | Outpatient (AMB) | payer OTHER, SELFPAY ==
[2025-03-16 09:16] VITALS: BP 138/70; PULSE 91; RESP 16; TEMP 36.3; O2SAT 98; BMI 38.3
--- NOTE | 2025-03-16 09:16 | A.OFFPC_ITS ---
Vital Signs 03/16/25 09:16 Height 5 ft 3 in Weight 216 lb 2 oz BMI 38.3 BP 138/70 Blood Pressure Location Rt brachial Position Sitting Respiration 16 Pulse 91 Pulse Source Pulse Oximeter Temp 97.3 F Temp Source Oral Pulse Oximetry (%) 98 Oxygen Delivery Method Room Air Intake Visit Reasons: EP- 1 Month f/u Allergies No Known Allergies Allergy (Verified 03/16/25 09:16) Medication List - Last Reconciled 03/16/25 by Jose J Berg MD alcohol swabs 1 pad topical QIDACHS ascorbic acid (vitamin C) 500 mg PO DAILY atorvastatin (Lipitor) 20 mg PO BEDTIME blood-glucose sensor (FreeStyle Lala 3 Plus Sensor device) As directed [diabetic shoes, socks, and inserts Please provide patient with a pair of diabetic shoes and 2 pairs of diabetic insoles & socks.] ferrous sulfate (iron) 325 mg PO DAILY insulin glargine (Lantus Solostar U-100 Insulin) 15 units (0.15 mL) subcut BEDTIME insulin lispro (Humalog KwikPen (U-100) Insulin) Blood Sugar: <150 - 0 units 151-200 - 2 units 201-250 - 4 units 251-300 - 6 units 301-350 - 8 units >350 - 10 units metformin ER (Glucophage XR) 500 mg PO BID ko-[id number]-[id number]-Ca carb-vit K 18 mg iron-400 mcg-500 mg 1 tab PO DAILY naproxen sodium (Aleve) 440 - 660 mg PO BID PRN pen needle, diabetic Use four times a day or as directed. pen needle, diabetic (Galilea 2nd Gen Pen Needle) 1 ea miscellaneous .HS Tobacco use date assessed: 02/16/25 Dental Screening Dental Screen Date: 02/16/25 HPI HPI Comments History of Present Illness Details History of Present Illness The patient is a 30-year-old female presenting for a follow-up visit for management of diabetes. Diabetes Mellitus: The patient reports that her morning blood glucose levels are still high, with a recent reading of 220, and sometimes they are also elevated at nighttime. She has been taking 23 units of insulin glargine (Lantus) at night and uses insulin lispro on a sliding scale. She has discontinued metformin 1000 mg due to gastrointestinal upset. She reports making lifestyle changes, including walking more, eating better with more protein and vegetables, and avoiding sugary drinks. For monitoring, she uses the Freestyle Lala 3 sensor with her phone and has stopped using the Freestyle meter and strips. She has experienced issues with her pharmacy only dispensing 30 pen needles for a month, which is insufficient. The patient has an appointment with a drainage design coordinator on the , needs to reschedule with the community educator, and has not yet been contacted for her ophthalmology referral. Her last HbA1c test was on January 24. Hypoglycemia: The patient reports a recent episode where her continuous glucose monitor showed her blood sugar dropping to 50, which caused her significant anxiety. She did not experience physical symptoms like dizziness but had a racing heart after becoming nervous about the reading. She consumed juice and food in response, but the sensor continued to indicate low levels. A subsequent fingerstick check revealed a normal blood glucose level, suggesting the sensor was malfunctioning, as it had been giving frequent error messages. Medications: - Vitamin C - Atorvastatin 20 mg - Iron supplement - Insulin glargine (Lantus) 23 units at night - Insulin lispro (sliding scale) - Multivitamin - Naproxen (Aleve) as needed for pain - Discontinued: Metformin 1000 mg due to stomach upset Social History: - Family status: The patient has an 8-ye ar-old daughter who is involved in dance and gymnastics. - She lives with her , who works two jobs. - Exercise: She reports walking a lot mo re. - Nutrition: She reports eating better, with increased intake of protein and vegetables. - She has avoided coffee and sugary drin ks, opting for zero-sugar beverages. Diagnostic Results: - Lab history: HbA1c level was last chec ked on 01/24; the result was not specified. Past Medical History - Diabetes mellitus - Unspecified breast condition, currentl y healing. Health Maintenance - The patient has been making dietary ch anges, including increased protein and vegetables and avoiding sugary drinks. - The patient reports she has been walki ng more. - Has a referral for a diabetic eye exam . - Has a scheduled appointment with a nut ritionist on the of the month. - Advised to reschedule an appointment w ith a community educator. - Plans to have lab work, including an H bA1c and Comprehensive Metabolic Panel (CMP), done in April. [facility] Medical History (Updated 03/16/25 @ 09:46 by Jose J Berg MD) Proteinuria Breast abscess Class 2 obesity Diabetes mellitus with hyperglycemia Pes planus of both feet Family History (Updated 02/16/25 @ 09:34 by Therese Wells [facility]) Father No problems noted. Mother No problems noted. Social History Housing: Apartment Do you presently have visiting nurse or other home services: No Alcohol intake: current Alcohol intake frequency: does not drink Patient Tobacco Use Status: Former Tobacco user e-Cigarette/Vaping Use: Former Use Second Hand Smoke Exposure: No service: No Current occupational status: employed Cognitive needs: Yes (occasionally needs cane/wheelchair) Hearing needs: No Vision needs: Yes (rx glass) Questionnaire Thrive Questionnaire Date Thrive assessed: 01/21/25 I am a: Patient What is your living situation today?: I have a steady place to live Within the past 12 months, did the food you bought not last and you didn't have the money to get more?: Never true Within the past 12 months, did you worry whether your food would run out before you got money to buy more?: Never true Do you have trouble paying for medicines?: No Do you have trouble getting transportation to medical appointments?: No Do you have trouble paying your heating and electricity bill?: I choose not to answer this question Do you have trouble taking care of your child, family member or friend?: No Do you have trouble with day-to-day activities such as bathing, preparing meals, shopping, managing finances, etc.?: No Are you currently unemployed and looking for a job?: No Are you interested in more education?: No Please select the resources that you would like help with: None Currently or been in a relationship where the following occur: No concerns reported THRIVE Score: 0 BRANDON-7 AMB Questionnaire BRANDON-7 Date BRANDON - 7 assessed: 02/16/25 Source: Developed by Drs. Jamal Mayfield, Brianna Mcdaniel, Kaiden Hall and colleagues, with an educational ismael from [employer] Review of Systems Narrative Review of Systems - General: Reports feeling more energetic, denies fatigue and dizziness. - HEENT/Endocrine: Reports intermittent fasting hyperglycemia, with recent morni ng levels up to 220. - Cardiovascular: Reports anxiety-induced tachycardia during a recent episode of perceived hypoglycemia, but denies dizziness. - Gastrointestinal: Reports stomach upset from metformin. - Dermatologic: Reports a breast issue is healing well. 10-point ROS reviewed and negative except as noted in HPI Physical exam (Primary Care) Vital Signs: Last Vital Signs Temp 97.3 F 03/16/25 09:16 Pulse 91 03/16/25 09:16 Resp 16 03/16/25 09:16 BP 138/70 03/16/25 09:16 Pulse Ox 98 03/16/25 09:16 Oxygen Delivery Method Room Air 03/16/25 09:16 BMI result Body Mass Index 38.3 Tobacco/Smoking Status: Tobacco use Status Tobacco use date assessed 02/16/25 03/16/25 09:20 Patient Tobacco Use Status Former Tobacco user 03/16/25 09:20 e-Cigarette/Vaping Use Former Use 03/16/25 09:20 Thrive Assessment: Date of Thrive Assessment Date Thrive assessed 01/21/25 03/16/25 09:20 Currently or been in a relationship where the following occur: No concerns reported Narrative Physical Exam General: Well-appearing, in no acute distress. Vital signs: Within normal limits. HEENT: Normocephalic, atraumatic. PERRLA, EOMI. Conjunctiva clear, sclera anicteric. Oropharynx clear, mucous membranes moist. TMs intact bilaterally. Neck: Supple, no lymphadenopathy, no thyromegaly, no JVD or carotid bruits. Cardiovascular: RRR, normal S1/S2, no murmurs, rubs, or gallops. Peripheral pulses 2+ and symmetric. No edema. Respiratory: Lungs clear to auscultation bilaterally, no wheezes, rales, or rhonchi. Normal effort. Abdomen: Soft, non-tender, non-distended. Normoactive bowel sounds. No hepatosplenomegaly, no masses. MSK: Full range of motion, no joint swelling or deformity. Normal gait. Skin: Warm, dry, intact. No rashes, lesions, or pallor. Neuro: Alert and oriented x3. Cranial nerves II-XII intact. Strength 5/5 throughout. Sensation intact. Reflexes 2+ symmetric. Normal coordination and gait. Psych: Appropriate mood and affect. Normal judgment and insight. Coding Level of Care Code Est Pt Level 3 (57371) Diagnoses Insulin dependent type 2 diabetes mellitus E11.9; Z79.4 Class 2 obesity E66.812 Proteinuria R80.9 Assessment & Plan Assessment & Plan (1) Insulin dependent type 2 diabetes mellitus: Code(s): E11.9 - Type 2 diabetes mellitus without complications; Z79.4 - petroleum terminal plant operator (current) use of insulin Category: Medical (2) Class 2 obesity: Code(s): E66.812 - Obesity, class 2 Category: Medical (3) Proteinuria: Code(s): R80.9 - Proteinuria, unspecified Category: Medical Plan Consent Patient was informed and verbally consented to the use of an ambient scribe for clinic note documentation during this visit. Plan 1. Diabetes Mellitus - To address persistent fasting hyperglycemia, the dose of insulin glargine (Lantus) will be increased from 23 units to 25 units taken at night. - The patient will continue to use insulin lispro on a sliding scale. - Due to gastrointestinal intolerance, immediate-release metformin will be stopped and replaced with metformin extended-release, to be taken twice a day. - A new prescription for 100 pen needles will be sent to the pharmacy to address the supply shortage. - The patient was encouraged to continue her diet and exercise improvements. - The patient will follow up with the drainage design coordinator, community educator, and well driller as previously referred. - Lab orders for an HbA1c and Comprehensive Metabolic Panel (CMP) will be placed for April, prior to the next follow-up appointment. 2. Hypoglycemia - The patient was educated that her recent low glucose reading was likely a sensor error, given the lack of physical symptoms and a contradictory normal fingerstick result. - Advised to perform a confirmatory fingerstick test whenever her CGM readings seem inconsistent with how she feels to avoid unnecessary anxiety and treatment. Discussion Notes I reviewed the patient's progress and home glucose monitoring. Due to persistent fasting hyperglycemia, we agreed to increase her nightly Lantus dose from 23 to 25 units. We discussed her intolerance to metformin, which caused significant stomach upset, and I will be prescribing the extended-release formulation to improve tolerability. I addressed her concern about a recent hypoglycemic event detected by her sensor, explaining it was likely a sensor error since she was asymptomatic and a confirmatory fingerstick was normal. I advised her to use a fingerstick to verify any questionable sensor readings in the future to prevent anxiety. I acknowledged and praised her significant efforts in improving her diet and increasing her physical activity. We confirmed the plan for her to follow up with the drainage design coordinator and community educator, and I provided the contact number for her to schedule the ophthalmology exam. We will reassess her progress with an A1c and CMP in April. Patient Instructions - Increase your Lantus insulin dose to 25 units each night. - Stop taking your current metformin. You will receive a new prescription for metformin extended-release, which you should take twice a day. - Continue with your great work on diet and walking more. - If your glucose sensor shows a very low number but you feel fine, check your sugar with a finger prick before taking juice or food. - Please call [facility] at [phone] to schedule your eye exam. - Keep your appointment with the drainage design coordinator on the and call to get an appointment with the community educator. - Please have your blood work (A1c and CMP) done in April before your next visit. Medical Decision Making The patient is a 30-year-old female with diabetes mellitus, here for a follow-up visit. Her chief concern is persistent fasting hyperglycemia, with morning readings up to 220. This warrants an adjustment in her basal insulin regimen. Therefore, her insulin glargine (Lantus) dose is being increased from 23 to 25 units nightly. The patient reported discontinuing immediate-release metformin due to significant gastrointestinal distress. To provide the benefits of metformin therapy with improved tolerability, she is being switched to an extended-release formulation to be taken twice daily. A recent episode of perceived hypoglycemia (reading of 50 on CGM) was inv estigated. The patient was asymptomatic, and a subsequent confirmatory fingerstick glucose test was normal, indicating likely sensor error. The patient was educated on verifying questionable CGM readings to prevent unnecessary treatment and anxiety. This is particularly important as her glycemic control improves and she becomes more sensitive to fluctuations. The patient is demonstrating excellent motivation and adherence to lifestyle modifications, including diet and exercise, which is encouraging. The plan includes medication titration, reinforcing comprehensive diabetic care through referrals (nutrition, education, ophthalmology), and monitoring progress with an HbA1c and CMP in three months. Total time spent caring for the patient today was 20 minutes. This includes time spent before the visit reviewing the chart, time spent documenting, and time spent reviewing laboratory results, diagnostic imaging, medications, performing a medically necessary evaluation, counseling on diagnoses, care coordination
== END 2025-03-16 09:45 | disposition home or self-care (01) ==
LOC: HO.HMCFMS 09:13
PROVIDERS: PCP Student in an Organized Health Care Education/Training Program; Visit Provider Student in an Organized Health Care Education/Training Program
DX: E11.9 Type 2 diabetes mellitus without complications (principal); Z79.4 Long term (current) use of insulin; E66.812 Obesity, class 2; R80.9 Proteinuria, unspecified

== ENCOUNTER → 2025-03-16 09:12 | Outpatient (BNVA) | payer OTHER, SELFPAY | PROVIDERS: PCP Internal Medicine; Visit Provider Student in an Organized Health Care Education/Training Program | DX: E11.9 Type 2 diabetes mellitus without complications (principal); E66.812 Obesity, class 2; Z68.38 Body mass index [BMI] 38.0-38.9, adult; R80.9 Proteinuria, unspecified; Z79.4 Long term (current) use of insulin; Z79.899 Other long term (current) drug therapy | CPT/HCPCS: 99212 ==

== ENCOUNTER 2025-03-21 08:59 | Outpatient (AMB) | payer OTHER, SELFPAY ==
[2025-03-21 09:04] VITALS: BMI 37.0
--- NOTE | 2025-03-21 09:04 | A.OFFVIS_ITS ---
VS Expanded 03/21/25 09:04 03/21/25 09:10 Height 5 ft 3 in 5 ft 3 in Weight 208 lb 15.971 oz 209 lb BMI 37.0 37.0 Intake Visit Reasons: DM2 Allergies No Known Allergies Allergy (Verified 03/16/25 09:16) Nutrition Presentation Details: Pt presents for MNT for T2DM and obesity Pt reports switching to lower sugar beverages, and working on switching to complex carbohydrates. Pt has concerns about feeling deprived of foods she likes BS Monitoring Most Recent Diabetes Results: Microalb/Creat Ratio, (<30) 75.2 ug/mg cr H 01/24/25 Cholesterol, (<200) 230 mg/dL H 01/24/25 HDL Cholesterol, (>40) 36 mg/dL L 01/24/25 Triglycerides, (<150) 121 mg/dL 01/24/25 Creatinine, (0.5-1.4) 0.46 mg/dL L 01/24/25 BUN, (9-16) 18 mg/dL H 01/24/25 Sodium, (135-145) 137 mmol/L 01/24/25 Potassium, (3.3-5.1) 4.2 mmol/L 01/24/25 Chloride, (96-108) 108 mmol/L 01/24/25 Carbon Dioxide, (22-29) 23 mmol/L 01/24/25 Calcium, (8.4-10.2) 9.5 mg/dL Δ 01/24/25 AST, (5-31) 27 U/L 01/24/25 ALT, (0-31) 14 U/L 01/24/25 Total Protein, (6.5-8.0) 7.3 g/dL 01/24/25 Albumin, (3.5-5.0) 4.3 g/dL 01/24/25 XVJ-Brcxgrs-Uq.Jeor Equation Height: 5 ft 3 in Weight: 209 lb Resting Metabolic Rate: 1633.67 Calculated Activity Level: Sedentary Calories Needed to Maintain Weight: 1960.40 Diagnosis Nutrition problem #1: overweight/obesity As related to (etiology) #1: diagnosis As evidenced by (sign/symptom) #1: knowledge deficit of diet [facility] Medical History (Updated 03/16/25 @ 09:46 by Jose J Berg MD) Proteinuria Breast abscess Class 2 obesity Diabetes mellitus with hyperglycemia Pes planus of both feet Family History (Updated 02/16/25 @ 09:34 by Therese Wells CMA) Father No problems noted. Mother No problems noted. Social History Housing: Apartment Do you presently have visiting nurse or other home services: No Alcohol intake: current Alcohol intake frequency: does not drink Patient Tobacco Use Status: Former Tobacco user e-Cigarette/Vaping Use: Former Use Second Hand Smoke Exposure: No service: No Current occupational status: employed Cognitive needs: Yes (occasionally needs cane/wheelchair) Hearing needs: No Vision needs: Yes (rx glass) Assessment & Plan Assessment & Plan (1) Diabetes mellitus with hyperglycemia: Code(s): E11.65 - Type 2 diabetes mellitus with hyperglycemia Category: Medical Qualifiers: Diabetes mellitus type: type 2 Plan: current wt: 95 kg ( 04/04 ) est kcal needs as per MSJ: 2000 est protein needs as per 1 g/kg BW: 100 est fluid needs as per 30 ml/kg BW: 2800 Recommended fiber > 12 g /day and gradually increase up to 25-28 g /day or as tolerated Recommended sodium intake: 2300 mg per day or less Nutrition topics discussed : Reviewed (R), Pt verbalized understanding (V) , not applicable (N/A) R, : Healthy Plate Method Concept: R, : Carbohydrates: food sources of carbohydrates, relationship of carbohydrates to blood glucose, fatty liver GI health. Recommended total amount of carbohydrates per meals and snack. Differences between simple carbohydrates and complex carbohydrates R, : Lean protein foods including vegan , vegetarian sources of protein. Be nefits of protein (including but not limited to healing, nutritional value , benefits in weight loss, glucose control R, V, N/A: Fats : Source of fats, benefits of fats. Difference between saturated and unsaturated fats. Saturated fats and its contribution to inflammation R, V, N/A: Fiber: food sources and role of fiber in the diet (including but not limited to its role as a prebiotic, benefits in constipation, role in IBS , role in glucose control and cholesterol level) R, : Hydration: role of hydration and prevention of dehydration or over hydration. Foods and water content. R, V, N/A: Vitamins and Minerals in foods and supplements R, V, N/A: Interpreting food labels, including serving size, macronutrients, vitamins, minerals, allergens, ingredient list , % daily value Reviewed hypoglycemia: The rule of 15 (treat low blood sugar, blood sugar less than 70, with 15 of carbohydrates (half a cup of juice, or 3-4 glucose tablets, or 1 tbsp of sugar/honey) monitor blood sugar 15 minutes after and repeat treatment if blood sugar continues below 70) Patient Instructions: Continue working on meal planning, reducing total carbohydrates to 45-60 g per meal following healthy plate method Keep hydrated by having low sugar, water Maintain physically active as able Coding Level of Care Code Nutr Indiv Intake (17337) Diagnoses Diabetes mellitus with hyperglycemia E11.65 Diabetes mellitus type: type 2 Time Spent (min) 30
[2025-03-21 09:10] VITALS: BMI 37.0
== END 2025-03-21 09:43 | disposition home or self-care (01) ==
LOC: HO.ENCR 09:00
PROVIDERS: PCP Student in an Organized Health Care Education/Training Program; Visit Provider Dietitian, Registered
DX: E11.65 Type 2 diabetes mellitus with hyperglycemia (principal)

== ENCOUNTER → 2025-03-21 08:59 | Outpatient (BNVA) | payer OTHER, SELFPAY | PROVIDERS: PCP Student in an Organized Health Care Education/Training Program; Visit Provider Dietitian, Registered | DX: E11.65 Type 2 diabetes mellitus with hyperglycemia (principal) | CPT/HCPCS: 97802 ==

== ENCOUNTER 2025-04-04 08:58 | Outpatient (AMB) | payer OTHER, SELFPAY ==
--- NOTE | 2025-04-04 09:14 | A.OFFVIS_ITS ---
Vital Signs 04/04/25 09:15 Height 5 ft 3 in Weight 209 lb BMI 37.0 Intake Visit Reasons: fu routine diabetic nail care Intake Note: Chikis is a 30 year old female who presents today for a diabetic nail care appointment. At her last visit she was prescribed diabetic socks, insoles, and shoes to aid in foot care. She was advised to avoid barefoot walking, wear supportive shoe gear, and to purchase OTC superfleet green insoles. Patient reports she was unable to get the diabetic socks or shoes at this time due to her being scheduled in may, and she did purchase insoles and she has been following the recommendations she was given. She also mentions she has been utilizing a diabetic cream for her feet. Allergies No Known Allergies Allergy (Verified 04/04/25 09:17) HPI Comments Details: The patient is a 30-year-old individual presenting for a follow-up of diabetic preventative foot care. The patient states her blood glucose levels have been more stable and within normal ranges since the last visit, attributed to a change in medication regimen. She states her PCP increased the insulin dosage slightly and switched the her to extended-release metformin, which the patient tolerates better without gastrointestinal side effects. The patient reports ad herence to the new medication regimen and has not experienced any adverse effects since the change. The patient has obtain diabetic shoes and insoles to provide better support and prevent foot complications. Patient states she experiences discomfort to the feet when the nails are too long and thickened. Patient is unable to tend to her feet due to her past medical history. She denies any new pedal injuries. She denies any other pedal concerns. [facility] Medical History (Updated 04/09/25 @ 17:46 by Kiara Rick DPM) Nail disorder Nail dystrophy Tinea unguium Proteinuria Breast abscess Class 2 obesity Diabetes mellitus with hyperglycemia Pes planus of both feet Family History (Updated 02/16/25 @ 09:34 by Therese Wells CMA) Father No problems noted. Mother No problems noted. Social History Housing: Apartment Do you presently have visiting nurse or other home services: No Alcohol intake: current Alcohol intake frequency: does not drink Patient Tobacco Use Status: Former Tobacco user e-Cigarette/Vaping Use: Former Use Second Hand Smoke Exposure: No service: No Current occupational status: employed Cognitive needs: Yes (occasionally needs cane/wheelchair) Hearing needs: No Vision needs: Yes (rx glass) Review of Systems Const Details: - Dermatological: Reports elongated, dystrophic, and thickened toenails x10. All systems reviewed & are unremarkable except as noted in HPI and below Physical Exam Vital Signs: BMI result Body Mass Index 37.0 Extrem Other: Bilateral lower extremity focused physical exam: Derm: Toenails x10 noted to be thickened, dystrophic, and elongated with subungual debris noted. No open lesions abrasions or wounds noted. Skin turgor supple and within normal limits. No erythema or ecchymosis noted. No clinical signs of infection. Vascular: DP/PT pulses palpable. Capillary refill time less than 3 seconds. Temperature gradient warm to warm. Mild edema noted to bilateral feet. Pedal hair present. No varicosities noted. Neuro: Protective sensation is grossly intact. MSK: Discomfort noted upon palpation to the toenails due to the increased thickness x10. No pain on palpation to the remaining aspects of the feet and ankles. Range of motion of the forefoot hindfoot and ankles within normal limits. No crepitus noted. Nonantalgic gait unassisted noted. Pes planus foot type. No gross abnormalities noted. Office Procedures AMB Debridement/Avulsion Podia Details: Debrided toenails x10 using sterile nail nippers and silvia laurie Dremel without any incidents. [id number] of Nail 6+ Procedure code (CPT) selection complete Results Reviewed Results Reviewed: Laboratory Tests 01/24/25 10:16 WBC 8.2 Random Glucose 258 H AST 27 ALT 14 Patient states her A1c was approximately 11%. 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 Category: Medical (2) Pes planus of both feet: Code(s): M21.41 - Flat foot [pes planus] (acquired), right foot; M21.42 - Flat foot [pes planus] (acquired), left foot Category: Medical (3) Diabetes mellitus with hyperglycemia: Code(s): E11.65 - Type 2 diabetes mellitus with hyperglycemia Category: Medical Qualifiers: Diabetes mellitus type: type 2 (4) Class 2 obesity: Code(s): E66.812 - Obesity, class 2 Category: Medical (5) Tinea unguium: Code(s): B35.1 - Tinea unguium Category: Medical (6) Nail dystrophy: Code(s): L60.3 - Nail dystrophy Category: Medical (7) Nail disorder: Code(s): L60.9 - Nail disorder, unspecified Category: Medical Plan Patient was informed and verbally consented to the use of an ambient scribe for clinic note documentation during this visit. I discussed with the patient the importance of continuing the current diabetes management plan as per PCP recommendations, including the use of extended- release metformin and adjusted insulin dosage, which has improved blood glucose stability. We also reviewed the benefits of using diabetic shoes and insoles to prevent foot complications. The patient was advised to continue routine nail care and to report any changes or new symptoms promptly. - Debrided toenails x10. - Continue with routine nail care and monitor for any changes in the condition of the toenails. - Maintain current diabetes management regimen as per PCP recommendation, including the adjusted insulin and extended-release metformin. - Encouraged the use of diabetic shoes and insoles to prevent foot complicatio ns. - Patient is to monitor her feet daily. - Patient is to avoid barefoot walking and is to wear supportive shoe gear. Patient is to return to the office in 9 weeks for routine diabetic foot/nail ca re. Orders: Orders AMB Debridement/Avulsion Podiatry 04/04/25 B35.1 - Tinea unguium, E11.65 - Type 2 diabetes mellitus with hyperglycemia, E11.9 - Type 2 diabetes mellitus without complications, E66.812 - Obesity, class 2, L60.3 - Nail dystrophy, L60.9 - Nail disorder, unspecified, M21.41 - Flat foot [pes planus] (acquired), right foot, M21.42 - Flat foot [pes planus] (acquired), left foot, Z79.4 - terminal system operator (current) use of insulin Coding Level of Care Code Est Pt Level 3 (03112) Diagnoses Insulin dependent type 2 diabetes mellitus E11.9; Z79.4 Pes planus of both feet M21.41; M21.42 Diabetes mellitus with hyperglycemia E11.65 Diabetes mellitus type: type 2 Class 2 obesity E66.812 Tinea unguium B35.1 Nail dystrophy L60.3 Nail disorder L60.9 CPT Codes Skin Debridement - CPT: 15534-Svimtjvdgqv of Nail 6+ ([id number]) Time Spent (min) 30 Comment 7 mins for procedure
[2025-04-04 09:15] VITALS: BMI 37.0
== END 2025-04-04 09:25 | disposition home or self-care (01) ==
LOC: HO.HPODS 08:59
PROVIDERS: PCP Student in an Organized Health Care Education/Training Program; Visit Provider Student in an Organized Health Care Education/Training Program
DX: E11.65 Type 2 diabetes mellitus with hyperglycemia (principal); Z79.4 Long term (current) use of insulin; M21.41 Flat foot [pes planus] (acquired), right foot; M21.42 Flat foot [pes planus] (acquired), left foot; E66.812 Obesity, class 2; B35.1 Tinea unguium; L60.3 Nail dystrophy; L60.9 Nail disorder, unspecified
CPT/HCPCS: 11721; 99213

== ENCOUNTER → 2025-04-04 08:58 | Outpatient (BNVA) | payer OTHER, SELFPAY | PROVIDERS: PCP Student in an Organized Health Care Education/Training Program; Visit Provider Student in an Organized Health Care Education/Training Program | DX: E11.65 Type 2 diabetes mellitus with hyperglycemia (principal); Z79.4 Long term (current) use of insulin; L60.9 Nail disorder, unspecified; L60.3 Nail dystrophy; B35.1 Tinea unguium; E66.812 Obesity, class 2; M21.41 Flat foot [pes planus] (acquired), right foot; M21.42 Flat foot [pes planus] (acquired), left foot | CPT/HCPCS: 11721; 99212 ==

== ENCOUNTER 2025-04-24 12:58 | Outpatient (REF) | payer OTHER, SELFPAY ==
[2025-04-24 18:21] LABS: Appearance Urine Turbid; Glucose Urine UA Negative (Negative); PH 5.5 (5.0-9.0); Specific Gravity - Urine 1.025 (1.005-1.025); UMIC TRIGGER UACC YES
[2025-04-24 18:29] LABS: Alanine Aminotransferase 17 U/L (0-31); Albumin Level 4.3 g/dL (3.5-5.0); Alkaline Phosphatase 63 U/L (39-117); Anion Gap 10 (12-20); Aspartate Amino Transferase 20 U/L (5-31); Blood Urea Nitrogen 15 mg/dL (9-16); Calcium 9.8 mg/dL (8.4-10.2); Carbon Dioxide 23 mmol/L (22-29); Chloride 108 mmol/L (96-108); Estimated Glomerular Filt Rate > 60; Potassium 4.3 mmol/L (3.3-5.1); Sodium 137 mmol/L (135-145); Total Protein 7.4 g/dL (6.5-8.0)
[2025-04-24 19:09] LABS: Microalbum/Creatinine Ratio Ur 43.7 ug/mg cr (<30)
== END 2025-04-24 12:59 | disposition home or self-care (01) ==
LOC: HO.HKASLDS 12:58
PROVIDERS: PCP Student in an Organized Health Care Education/Training Program; Visit Provider Student in an Organized Health Care Education/Training Program
DX: E11.65 Type 2 diabetes mellitus with hyperglycemia (principal); R80.9 Proteinuria, unspecified
CPT/HCPCS: 36415; 80053; 81001; 82043; 82570; 83036

== ENCOUNTER 2025-05-01 08:24 | Outpatient (AMB) | payer OTHER, SELFPAY ==
--- NOTE | 2025-05-01 08:46 | A.OFFPC_ITS ---
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 Required: No Accompanied by: Self / Same As Patient Allergies No Known Allergies Allergy (Verified 05/01/25 08:48) Medication List - Last Reconciled 05/01/25 by Jose J Berg MD alcohol swabs 1 pad topical QIDACHS ascorbic acid (vitamin C) 500 mg PO DAILY atorvastatin (Lipitor) 20 mg PO BEDTIME blood-glucose sensor (FreeStyle Lala 3 Plus Sensor device) 1 ea miscellaneous .every 15 days [diabetic shoes, socks, and inserts Please provide patient with a pair of diabetic shoes and 2 pairs of diabetic insoles & socks.] ferrous sulfate (iron) 325 mg PO DAILY insulin glargine (Lantus Solostar U-100 Insulin) 25 units (0.25 mL) subcut BEDTIME insulin lispro (Humalog KwikPen (U-100) Insulin) Blood Sugar: <150 - 0 units 151-200 - 2 units 201-250 - 4 units 251-300 - 6 units 301-350 - 8 units >350 - 10 units metformin ER (Glucophage XR) 500 mg PO BID ri-[id number]-[id number]-FA-Ca carb-vit K 18 mg iron-400 mcg-500 mg 1 tab PO DAILY naproxen sodium (Aleve) 440 - 660 mg PO BID PRN pen needle, diabetic Use four times a day or as directed. pen needle, diabetic (Galilea 2nd Gen Pen Needle) 1 ea miscellaneous .HS Tobacco use date assessed: 02/16/25 Dental Screening Dental Screen Date: 02/16/25 HPI HPI Comments History of Present Illness Details History of Present Illness The patient is a 30 year old female presenting for a follow-up visit to review lab results and manage her type 2 diabetes. Type 2 Diabetes Mellitus: The patient's hemoglobin A1c has shown significant improvement, decreasing from 11.4% on 01/17/25 to 7.1% on 04/24/25. She reports feeling much better, with resolution of previous fatigue and headaches, and is now able to recognize symptoms of both hyperglycemia and hypoglycemia, the latter of which includes dizziness and headaches with blood glucose levels as low as 70. She was hospitalized for her diabetes about five years ago and nearly went into shock. Her fasting blood glucose has improved, now consistently around 120, compared to previous readings of 180-200. Diabetic Nephropathy: The patient's urine jjrliapvrpsr-gs-nhplfdliyv ratio has improved, decreasing from 75.2 on 01/24 to 43.7, though it remains above the normal range of less than 30. Hyperlipidemia: The patient is taking atorvastatin for hyperlipidemia. Anemia: The patient is taking ferrous sulfate for anemia. Medications: - Vitamin C - Atorvastatin - Ferrous sulfate (iron) - Insulin glargine 25 units at night - Insulin lispro, sliding scale PRN - Metformin extended release, taken tw e a day Social History: - Nutrition: The patient is seeing a nut ritionist for dietary advice on what to eat and has also been doing her own research. - Support System: She reports feeling we ll-supported by her family and provider, in contrast to her experience five years ago when she felt unsupported and lacked guidance. Diagnostic Results: - Hemoglobin A1c: 7.1% on 04/24/25 (down from 11.4% on 01/17/25). - Urine microalbumin/creatinine ratio: 4 3.7 on a recent test (down from 75.2 on 01/24). The goal is <30. Past Medical History - Hospitalization: The patient was hospi talized approximately five years ago for her diabetes and was close to going into shock. Health Maintenance - Diabetes Self-Management Education: Th e patient consults resources from the [place]. - Nutrition: She is seeing a van navarrete for dietary guidance. - Follow-up: Repeat lab work is planned for three months from now (late July or early August). [facility] Medical History Nail disorder Nail dystrophy Tinea unguium Proteinuria Breast abscess Class 2 obesity Diabetes mellitus with hyperglycemia Pes planus of both feet Family History Father No problems noted. Mother No problems noted. Social History (Updated 05/01/25 @ 08:48 by Han Jack CMA) Housing: Apartment Do you presently have visiting nurse or other home services: No Alcohol intake: current Alcohol intake frequency: does not drink Patient Tobacco Use Status: Former Tobacco user e-Cigarette/Vaping Use: Former Use Second Hand Smoke Exposure: No service: No Current occupational status: employed Cognitive needs: Yes (occasionally needs cane/wheelchair) Hearing needs: No Vision needs: Yes (rx glass) Questionnaire Thrive Questionnaire Date Thrive assessed: 01/21/25 I am a: Patient What is your living situation today?: I have a steady place to live Within the past 12 months, did the food you bought not last and you didn't have the money to get more?: Never true Within the past 12 months, did you worry whether your food would run out before you got money to buy more?: Never true Do you have trouble paying for medicines?: No Do you have trouble getting transportation to medical appointments?: No Do you have trouble paying your heating and electricity bill?: I choose not to answer this question Do you have trouble taking care of your child, family member or friend?: No Do you have trouble with day-to-day activities such as bathing, preparing meals, shopping, managing finances, etc.?: No Are you currently unemployed and looking for a job?: No Are you interested in more education?: No Currently or been in a relationship where the following occur: No concerns reported THRIVE Score: 0 BRANDON-7 AMB Questionnaire BRANDON-7 Date BRANDON - 7 assessed: 02/16/25 Source: Developed by Drs. Jamal Mayfield, Brianna Mcdaniel, Kaiden Hall and colleagues, with an educational ismael from [employer]. Review of Systems Narrative Review of Systems - Constitutional: Denies fatigue. - Neurological: Denies headaches, but reports occasional headaches and dizziness with hypoglycemia. - Endocrine: Reports increased awareness of symptoms associated with both hyperglycemia and hypoglycemia. 10-point ROS reviewed and negative except as noted in HPI Physical exam (Primary Care) Vital Signs: Last Vital Signs Temp 98.2 F 05/01/25 08:49 Pulse 91 05/01/25 08:49 Resp 20 05/01/25 08:49 BP 139/82 05/01/25 08:49 Pulse Ox 100 05/01/25 08:49 Oxygen Delivery Method Room Air 05/01/25 08:49 BMI result Body Mass Index 39.0 Tobacco/Smoking Status: Tobacco use Status Tobacco use date assessed 02/16/25 05/01/25 08:51 Patient Tobacco Use Status Former Tobacco user 05/01/25 08:51 e-Cigarette/Vaping Use Former Use 05/01/25 08:51 Thrive Assessment: Date of Thrive Assessment Date Thrive assessed 01/21/25 05/01/25 08:51 Currently or been in a relationship where the following occur: No concerns reported Narrative Physical Exam General: Well-appearing, in no acute distress. Vital signs: Within normal limits. HEENT: Normocephalic, atraumatic. PERRLA, EOMI. Conjunctiva clear, sclera anicteric. Oropharynx clear, mucous membranes moist. TMs intact bilaterally. Neck: Supple, no lymphadenopathy, no thyromegaly, no JVD or carotid bruits. Cardiovascular: RRR, normal S1/S2, no murmurs, rubs, or gallops. Peripheral pulses 2+ and symmetric. No edema. Respiratory: Lungs clear to auscultation bilaterally, no wheezes, rales, or rhonchi. Normal effort. Abdomen: Soft, non-tender, non-distended. Normoactive bowel sounds. No hepatosplenomegaly, no masses. MSK: Full range of motion, no joint swelling or deformity. Normal gait. Skin: Warm, dry, intact. No rashes, lesions, or pallor. Neuro: Alert and oriented x3. Cranial nerves II-XII intact. Strength 5/5 throughout. Sensation intact. Reflexes 2+ symmetric. Normal coordination and gait. Psych: Appropriate mood and affect. Normal judgment and insight. Coding Level of Care Code Est Pt Level 3 (41330) Add On Problem Visit Only Diagnoses Insulin dependent type 2 diabetes mellitus E11.9; Z79.4 Microalbuminuria R80.9 Hyperlipidemia E78.5 Iron deficiency anemia D50.9 Class 2 obesity E66.812 Assessment & Plan Assessment & Plan (1) Insulin dependent type 2 diabetes mellitus: Code(s): E11.9 - Type 2 diabetes mellitus without complications; Z79.4 - shelter (current) use of insulin Category: Medical (2) Microalbuminuria: Code(s): R80.9 - Proteinuria, unspecified Category: Medical (3) Hyperlipidemia: Code(s): E78.5 - Hyperlipidemia, unspecified Category: Medical (4) Iron deficiency anemia: Code(s): D50.9 - Iron deficiency anemia, unspecified Category: Medical (5) Class 2 obesity: Code(s): E66.812 - Obesity, class 2 Category: Medical Plan Consent Patient was informed and verbally consented to the use of an ambient scribe for clinic note documentation during this visit. Plan 1. Type 2 Diabetes Mellitus - Patient's HbA1c has significantly improved to 7.1%. - Will continue current medication regimen, including insulin glargine 25 units at night and metformin ER twice daily. - An increase in the metformin dose is not warranted at this time, as there is still room for improvement on the current regimen. - Labs will be repeated in three months (late July/early August) to monitor progress. 2. Diabetic Nephropathy - The patient's microalbumin/creatinine ratio has improved, indicating that her kidneys are healing. - Continue current diabetes management to further improve renal function. 3. Hyperlipidemia - Continue atorvastatin as prescribed. 4. Anemia - Continue ferrous sulfate as prescribed. Discussion Notes I reviewed the patient's recent lab results, highlighting her remarkable progress. I specifically noted the significant drop in her hemoglobin A1c from 11.4% to 7.1% and the improvement in her microalbumin/creatinine ratio from 75.2 to 43.7, explaining that this shows her kidneys are healing. We discussed that her current regimen, including the increased insulin glargine dose and switch to metformin ER, is working well, as evidenced by her improved fasting glucose and better overall well-being. I advised her to continue her current medications without changes, as I believe her A1c can improve further on this plan. We agreed to repeat labs in three months, around late July or early August, to re- evaluate. Patient Instructions - Continue taking your vitamin C, atorvastatin, and ferrous sulfate (iron) as directed. - Continue taking metformin extended-release twice a day. - Take 25 units of your long-acting (glargine) insulin at night. - Only use your short-acting (lispro) sliding scale insulin if your blood sugar is high, as you have not needed it often. - Continue checking your blood sugar regularly and pay attention to your body's signs of high or low blood sugar. - Keep working with your automobile mechanic helper and use resources like the [place] [employer] website for diet information. - We will check your labs again in about three months. Please schedule an appointment for late July or early August. Medical Decision Making The patient is a 30-year-old female with type 2 diabetes presenting for a follow-up to review labs, showing significant clinical improvement. Her HbA1c has markedly decreased from 11.4% to 7.1% over three months, reflecting excellen t response to her adjusted regimen. This progress is attributed to better adherence and tolerance of metformin ER, increased basal insulin (glargine to 25 units), and patient engagement through self-monitoring and nutrition counseling. Her microalbumin/creatinine ratio has also improved from 75.2 to 43.7, indicating a reduction in diabetic nephropathy and renal healing. Given her current HbA1c of 7.1 and the positive trajectory, I have decided to continue the current medication regimen without further intensification at this time, as there is still potential for her to reach her goal. A follow-up with repeat labs in three months is the most appropriate next step to assess for continued improvement and determine if future medication adjustments are needed. Total Time Statement 20 min Total time spent caring for the patient today includes pre-visit chart review, documentation, review of laboratory and diagnostic imaging results, medication reconciliation, medically necessary evaluation, counseling on diagnoses, care coordination, ordering appropriate tests and medications, review of tests performed by other providers, reporting test results to the patient, and communication with other healthcare providers. Orders: Orders Comprehensive Met. Panel 07/31/25 Z13.9 - Encounter for screening, unspecified Hemoglobin A1c 07/31/25 Z13.9 - Encounter for screening, unspecified Lipid Panel 07/31/25 Z13.9 - Encounter for screening, unspecified Complete Blood Count Auto Diff 07/31/25 Z13.9 - Encounter for screening, unspecified Vitamin B12 07/31/25 Z13.9 - Encounter for screening, unspecified Medications: Changed From insulin glargine (Lantus Solostar U-100 Insulin) 15 units (0.15 mL) subcut BEDTIME 15 mL 0RF To insulin glargine (Lantus Solostar U-100 Insulin) 25 units (0.25 mL) subcut BEDTIME 15 mL 0RF
[2025-05-01 08:49] VITALS: BP 139/82; PULSE 91; RESP 20; TEMP 36.8; O2SAT 100; BMI 39.0
== END 2025-05-01 09:07 | disposition home or self-care (01) ==
PROVIDERS: PCP Student in an Organized Health Care Education/Training Program; Visit Provider Student in an Organized Health Care Education/Training Program
DX: E11.9 Type 2 diabetes mellitus without complications (principal); Z79.4 Long term (current) use of insulin; R80.9 Proteinuria, unspecified; E78.5 Hyperlipidemia, unspecified; D50.9 Iron deficiency anemia, unspecified; E66.812 Obesity, class 2

== ENCOUNTER → 2025-05-01 08:24 | Outpatient (BNVA) | payer OTHER, SELFPAY | PROVIDERS: PCP Internal Medicine; Visit Provider Student in an Organized Health Care Education/Training Program | DX: E11.9 Type 2 diabetes mellitus without complications (principal); Z79.4 Long term (current) use of insulin; R80.9 Proteinuria, unspecified; E78.5 Hyperlipidemia, unspecified; D50.9 Iron deficiency anemia, unspecified; E66.812 Obesity, class 2; Z68.39 Body mass index [BMI] 39.0-39.9, adult; Z71.3 Dietary counseling and surveillance | CPT/HCPCS: 99212 ==